=== PATIENT | male | born 1965 | race Caucasian/White ===

== ENCOUNTER → 2016-12-25 | Outpatient (CLI) | payer BC ==
[~2016-12-25] MED LIST: OXYC1TAB3 PO
[2016-12-25 14:51] LABS: BASO % 0.3 %; BASO ABS # 0.03 K/uL (0-0.2); COMPLETE YES; EOS % 1.7 %; HEMATOCRIT 46.8 % (42-52); IG% 0.5 %; LYMPH % 25.5 %; LYMPH ABS # 2.36 K/uL (1.2-3.4); MEAN CELL VOLUME 102.6 fL (80-100); MEAN CORPUSCULAR HEMOGLOBIN 36.2 pg (25-34); MEAN CORPUSCULAR HGB CONC 35.3 g/dl (32-36); MEAN PLATELET VOLUME 9.9 fL (7.4-10.4); MONO % 3.7 %; NEUT % 68.3 %; PLATELET COUNT 306 K/uL (130-400); RED BLOOD COUNT 4.56 M/uL (4.7-6.1); WHITE BLOOD COUNT 9.26 K/uL (4.8-10.8)
[2016-12-25 15:03] LABS: ALT/SGPT 35 U/L (12-78); AST/SGOT 20 U/L (15-37); BLOOD UREA NITROGEN 14 mg/dl (7-18); BUN/CREATININE RATIO 11.4 (10-20); CALCIUM 8.6 mg/dl (8.5-10.1); CARBON DIOXIDE 28 mmol/L (21-32); CHLORIDE 108 mmol/L (98-107); GLUCOSE 170 mg/dl (70-99); POTASSIUM 3.8 mmol/L (3.5-5.1); SODIUM 143 mmol/L (136-145)
[2016-12-25 15:05] LABS: ALB/GLOB RATIO 1.1 (0.9-2); ALKALINE PHOSPHATASE 112 U/L (45-117); C-REACTIVE PROTEIN 0.54 mg/dl (0-0.29)
[2016-12-30 16:33] LABS: IGA SERUM 264 mg/dL (81-463); TIS TRANS IGA 1 U/mL (<4)
== END | disposition home or self-care (01) ==
LOC: C.LAB1850 13:33
PROVIDERS: ATTEND Registered Nurse
DX: K62.5 Hemorrhage of anus and rectum (principal)

== ENCOUNTER → 2016-12-30 | Outpatient (CLI) | payer BC ==
--- NOTE | 2016-12-30 09:17 | DIAGNOSTIC IMAGING REPORT ---
ULTRASOUND RIGHT UPPER QUADRANT ABDOMEN CLINICAL HISTORY: Chronic diarrhea. Crampy abdominal pain. COMPARISON STUDY: Abdominal CT dated 12/22/2015. TECHNIQUE: Real-time, grayscale, and color flow sonography of the right upper quadrant of the abdomen was performed. Images are reviewed in the transverse and longitudinal planes. FINDINGS: Liver: The liver is normal in size and contour. The liver demonstrates heterogeneously increased echotexture consistent with hepatic steatosis. Fatty sparing is noted adjacent to gallbladder fossa. There is no intrahepatic biliary ductal dilatation. The main portal vein is patent. Gallbladder: The gallbladder is normal in appearance. No gallstones are identified. There is no gallbladder wall thickening or pericholecystic fluid. A sonographic Rodriguez's sign is reportedly absent. The common bile duct measures up to 0.4 cm in diameter. Pancreas: Visualized portions of the pancreatic head and body are normal in appearance. Right kidney: Survey images of the right kidney demonstrate normal size and echotexture. There is no hydronephrosis. Ascites: None. IMPRESSION: 1. No acute sonographic abnormality is identified in the right upper quadrant. No gallstones are seen. 2. Hepatic steatosis. Electronically signed by: Pro White M.D. 12/30/2016 9:16 AM Dictated Date/Time: 12/30/2016 9:15 AM
== END | disposition home or self-care (01) ==
LOC: C.ULTR 08:35
PROVIDERS: ATTEND Registered Nurse
DX: K52.9 Noninfective gastroenteritis and colitis, unspecified (principal); R10.9 Unspecified abdominal pain

== ENCOUNTER → 2016-12-30 | Day surgery (SDC) | payer BC ==
[2016-12-26 09:58] VITALS: Ht 188 cm; Wt 80.0 kg
[~2016-12-30] VITALS: Ht 188 cm; Wt 80.0 kg
[~2016-12-30] MED LIST changes: +ATROPINE SULFATE 0.1 MG/ML 5ML SYR IV PRN; +EpHEDrine SULFATE INJ 50 MG/ML AMP IV PRN; +LIDOCAINE HCL 2% 2 ML VIAL (20MG/ML) ONE; +MIDAZOLAM HCL 1 MG/ML 2ML VIAL ONE; -OXYC1TAB3 PO; +PROPOFOL IV EMULSION 10 MG/ML 20 ML VIAL IV ONE; +SODIUM CHLORIDE 0.9% 500ML 500 ML IV ONE
--- NOTE | 2016-12-30 14:31 | Endo History and Physical ---
History & Physical Date of Service: Dec 30, 2016. Chief Complaint: abdominal cramping,chronic diarrhea,rectal bleeding Referring Physician: Dr. Ben Kearns History of Present Illness 51 yo CM who presents for colonoscopy secondary to abdominal cramping, chronic diarrhea and rectal bleeding. Past Medical History Gastrointestinal Disorder Past Surgical History Hx Cardiac Surgery: No Hx Internal Defibrillator: No Hx Pacemaker: No Hx Abdominal Surgery: No Hx Post-Op Nausea and Vomiting: No Hx Cancer Surgery: No Hx Thoracic Surgery: No Hx Orthopedic: Yes (RT/LEFT KNEE ARTHROSCOPY) Hx Urinary Tract Surgery: No Family History Polyp Social History Smoking Status: Current Every Day Smoker Hx Substance Use: No Hx Alcohol Use: Yes (OCAS) Allergies Coded Allergies: NO KNOWN DRUG ALLERGIES (Verified Allergy, Mild, ., 12/26/16) Animal Dander (Verified Allergy, Unknown, sinus symptoms, 12/26/16) Duck Feathers (Verified Allergy, Unknown, sinus symptoms, 12/26/16) Horse Allergy (Verified Allergy, Unknown, ., 12/26/16) Molds and Smuts (Verified Allergy, Unknown, sinus sypmtom, 12/26/16) Uncoded Allergies: GRASS AND WEEDS (Allergy, Unknown, sinus symptoms, 08/05/14) Current Medications Reported Home Medications Medications Dose Route/Sig Max Daily Dose Days Date Category No Active Prescriptions or Reported Medications Rx Vital Signs Weight (Kilograms): 80 Height (Feet): 6 Height (Inches): 2 Physical Exam General Appearance: WD/WN, no apparent distress Respiratory/Chest: Auscultation: breath sounds normal Cardiovascular: Heart Auscultation: RRR Abdomen: Bowel Sounds: normal Inspection & Palpation: soft, non-distended, no tenderness, guarding & rebound Assessment and Plan Assessment: 51 yo CM who presents for colonoscopy secondary to abdominal cramping, chronic diarrhea and rectal bleeding. Plan: Proceed with colonoscopy.
--- NOTE | 2016-12-30 15:04 | GI REPORT ---
Procedure Date: 12/30/2016 2:25 PM Procedure: Colonoscopy Indications: Chronic diarrhea, Rectal bleeding Medicines: Monitored Anesthesia Care Complications: No immediate complications. Estimated Blood Loss: Estimated blood loss: none. Procedure: Pre-Anesthesia Assessment: - Prior to the procedure, a History and Physical was performed, and patient medications and allergies were reviewed. The patient's tolerance of previous anesthesia was also reviewed. The risks and benefits of the procedure and the sedation options and risks were discussed with the patient. All questions were answered, and informed consent was obtained. Prior Anticoagulants: The patient has taken no previous anticoagulant or antiplatelet agents. ASA Grade Assessment: II - A patient with mild systemic disease. After reviewing the risks and benefits, the patient was deemed in satisfactory condition to undergo the procedure. After I obtained informed consent, the scope was passed under direct vision. Throughout the procedure, the patient's blood pressure, pulse, and oxygen saturations were monitored continuously. The scope was introduced through the anus and advanced to the terminal ileum. The colonoscopy was performed without difficulty. The patient tolerated the procedure well. The quality of the bowel preparation was good. The terminal ileum, the appendiceal orifice and the rectum were photographed. Findings: Two sessile polyps were found in the sigmoid colon and in the transverse colon. The polyps were 3 to 4 mm in size. These polyps were removed with a cold snare. Resection and retrieval were complete. Several random biopsies were obtained with cold forceps for histology in the entire colon. Fluid aspiration for cytology was performed in the entire colon. Multiple small-mouthed diverticula were found in the sigmoid colon. A tattoo was seen in the sigmoid colon. A post-polypectomy scar was found at the tattoo site. Non-bleeding internal hemorrhoids were found during retroflexion. The hemorrhoids were small. Impression: - Two 3 to 4 mm polyps in the sigmoid colon and in the transverse colon, removed with a cold snare. Resected and retrieved. - Diverticulosis in the sigmoid colon. - A tattoo was seen in the sigmoid colon. A post-polypectomy scar was found at the tattoo site. - Non-bleeding internal hemorrhoids. - Several random biopsies were obtained in the entire colon. - Fluid aspiration was performed. Recommendation: - Resume previous diet. - Continue present medications. - Repeat colonoscopy for surveillance based on pathology results. - Return to primary care physician as previously scheduled. Joshua Geller DO 12/30/2016 3:03:56 PM This report has been signed electronically. Note Initiated On: 12/30/2016 2:25 PM I attest to the content of the Intraoperative Record and orders documented therein, exceptions below
--- NOTE | 2016-12-30 15:05 | Discharge Instructions ---
Endoscopy Patient Instructions Date / Procedure(s) Performed Dec 30, 2016. Colonoscopy Allergy Information Coded Allergies: NO KNOWN DRUG ALLERGIES (Verified Allergy, Mild, ., 12/26/16) Animal Dander (Verified Allergy, Unknown, sinus symptoms, 12/26/16) Duck Feathers (Verified Allergy, Unknown, sinus symptoms, 12/26/16) Horse Allergy (Verified Allergy, Unknown, ., 12/26/16) Molds and Smuts (Verified Allergy, Unknown, sinus sypmtom, 12/26/16) Uncoded Allergies: GRASS AND WEEDS (Allergy, Unknown, sinus symptoms, 08/05/14) Discharge Date / Findings Dec 30, 2016. Colon polyps Diverticulosis Internal hemorrhoids Random colon biopsies Stool studies collected Medication Instructions OK to resume all medications today as prescribed Reported Home Medications Medications Dose Route/Sig Max Daily Dose Days Date Category No Active Prescriptions or Reported Medications Rx Provider Instructions Activity Restrictions - No exercising or heavy lifting for 24 hours. - Do not drink alcohol the day of the procedure. - Do not drive a car or operate machinery until the day after the procedure. - Do not make any important decisions or sign important papers in 24 hours after the procedure. Following Day: - Return to full activity which may include returning to work/school. Diet Start your diet with liquids and light foods (jello, soup, juice, toast). Then eat your usual diet if not nauseated. Treatment For Common After Affects For mild abdominal pain, bloating, or excessive gas: - Rest - Eat lightly - Lie on right side Follow-Up Information Follow-up with Dr. Ben Kearns as scheduled Anesthesia Information What You Should Know You have had a procedure that required some medicine to reduce anxiety and discomfort. This treatment is called moderate sedation. After receiving the treatment, you may be sleepy, but you will be able to breathe on your own. The effects of the treatment may last for several hours. Follow these instructions along with Activity/Diet recommendations noted above: * Do NOT do anything where dizziness or clumsiness would be dangerous. * Rest quietly at home today, then you can be up and about tomorrow. * Have a responsible person stay with you the rest of today. * You may have had an I.V. today. If so, you may take the dressing off later today. Recommendations Call your doctor if: * Trouble breathing * Continuous vomiting for more than 24 hours * Temperature above 101 degrees * Severe abdominal pain or bloating * Pain not relieved by pain medicine ordered * There is increased drainage or redness from any incision * A large amount of rectal bleeding greater than 2-3 tablespoons. (If you had a polyp/s removed or have hemorrhoids, a small amount of blood - from the rectum is to be expected.) * You have any unanswered questions or concerns. IN THE EVENT OF A SERIOUS EMERGENCY, GO TO THE NEAREST EMERGENCY ROOM Your discharge instructions were prepared by provider Joshua Geller. Patient Instructions Signature Page Ayan Sloan Patient (or Guardian) Signature/Date: I have read and understand the instructions given to me by my caregivers. Caregiver/RN/Doctor Signature/Date: The above-named patient and/or guardian has received patient instructions on this date. + Original Patient Signature Page (only) stays with chart. Please make copy for patient.
[2016-12-30 15:23] VITALS: BP 110/57; PULSE 47; O2SAT 95
--- NOTE | 2016-12-30 15:25 | Anesthesiology Progress Note ---
Anesthesia Post Op Note Date & Time Dec 30, 2016 at 15:25 Vital Signs Pain Intensity: 3 Vital Signs Past 12 Hours Date Time Temp Pulse Resp B/P (MAP) Pulse Ox O2 Delivery O2 Flow Rate FiO2 12/30/16 15:21 66 18 105/71 (82) 99 Room Air 12/30/16 15:07 70 18 117/68 (84) 98 Room Air 12/30/16 14:21 36.6 75 20 133/80 (97) 98 Room Air Notes Mental Status: alert / awake / arousable, participated in evaluation Pt Amnestic to Procedure: Yes Nausea / Vomiting: adequately controlled Pain: adequately controlled Airway Patency, RR, SpO2: stable & adequate BP & HR: stable & adequate Hydration State: stable & adequate Anesthetic Complications: no major complications apparent
== END | disposition home or self-care (01) ==
LOC: C.GI 08:44
PROVIDERS: ATTEND Internal Medicine
DX: K52.9 Noninfective gastroenteritis and colitis, unspecified (principal); K62.5 Hemorrhage of anus and rectum; D12.5 Benign neoplasm of sigmoid colon; D12.3 Benign neoplasm of transverse colon; K57.30 Diverticulosis of large intestine without perforation or abscess without bleeding; K64.8 Other hemorrhoids; Z98.890 Other specified postprocedural states; Z83.71 Family history of colonic polyps; F17.200 Nicotine dependence, unspecified, uncomplicated

== ENCOUNTER 2023-08-28 10:25 | Observation (INO) ==
[2023-08-28 11:18] LABS: Hematocrit (blood only) 46.4 % (42.0-52.0); Hemoglobin 15.9 g/dl (14.0-18.0); Mean Corpuscular Hemoglobin 33.8 pg (25.0-34.0); Mean Corpuscular Hgb Conc 34.3 g/dL (32.0-36.0); Mean Corpuscular Volume 98.5 fL (80.0-100.0); Platelet Count 307 K/uL (130-400); RDW Coefficient of Variation 13.2 % (11.5-14.5); RDW Standard Deviation 47.9 fL (36.4-46.3); Red Blood Count 4.71 M/uL (4.70-6.10); White Blood Count 7.34 K/ul (4.8-10.8)
--- NOTE | 2023-08-28 11:28 | XRay Report ---
XR chest 1V portable HISTORY: weakness COMPARISON: Chest 01/30/2020. FINDINGS: The lungs are clear. Cardiac silhouette is normal in size. No pleural effusions. No pneumot horax. Calcified left hilar lymph nodes again noted. IMPRESSION: No acute process. ACT 112: Negative or not required by law. Electronically signed by: Adonis Frederick M.D. 08/28/2023 11:27 AM
[2023-08-28 11:33] LABS: Albumin Globulin Ratio 1.5 (0.9-2); Albumin Level 4.8 gm/dl (3.4-5.0); BUN Creatinine Ratio 16.5 (10-20); Bilirubin,Total 0.6 mg/dl (0.2-1.0); Calcium 9.5 mg/dl (8.6-10.3); Creatinine Clr Calc Pharmacy 97.1 ml/min; Est GFR (African American) 100.7 ml/min; Est GFR (Non-African American) 86.9 ml/min; Globulin 3.2 gm/dl (2.5-4.0); Magnesium 2.1 mg/dl (1.7-2.4); Potassium 4.3 mmol/L (3.5-5.1)
[2023-08-28 11:39] LABS: Troponin I High Sensitivity 4.6 pg/ml (0-20)
[2023-08-28 11:43] LABS: INR 0.9 (0.9-1.1); Partial Thromboplastin Time 29 Seconds (21-31); Prothrombin Time 10.2 Seconds (9.0-12.0)
[2023-08-28] MEDS: OPTIRAY 320 125ml IV ONE (12:01)
--- NOTE | 2023-08-28 12:18 | CT Scan Report ---
HEAD CTA HISTORY: L facial numbness; weakness TECHNIQUE: Multiaxial CT images of the head were performed both before and after the intravenous admi nistration of contrast to evaluate the major cerebral vessels. 3D/MIP images were also obtained. Sag ittal and coronal reformats were reviewed. A dose lowering technique was utilized adhering to the fátima Emery. COMPARISON: None. FINDINGS: There is no mass, hematoma, midline shift, or acute infarct. Visualized intracranial actuarial intern al carotid arteries, distal vertebral arteries, and basilar artery are widely patent. There is no sig nificant stenosis, occlusion, or aneurysm seen within the bilateral ACAs, MCAs, or cataract lens generator. The major du ral venous sinuses are patent. IMPRESSION: No significant stenosis, occlusion, or aneurysm within the north fork of [place]. ACT 112: Negative or not required by law. Electronically signed by: Adonis Frederick M.D. 08/28/2023 12:17 PM
[2023-08-28 12:27] LABS: Adenovirus PCR Not Detected (NotDetected); Bordetella parapertussis PCR Not Detected (NotDetected); Bordetella pertussis PCR Not Detected (NotDetected); Chlamydia pneumoniae PCR Not Detected (NotDetected); Coronavirus 229E PCR Not Detected (NotDetected); Coronavirus CoV-2 (COVID19)PCR Not Detected (NotDetected); Coronavirus HKU1 PCR Not Detected (NotDetected); Coronavirus NL63 PCR Not Detected (NotDetected); Coronavirus OC43PCR Not Detected (NotDetected); Human Metapneumovirus PCR Not Detected (NotDetected); Influenza A PCR Not Detected (NotDetected); Influenza B PCR Not Detected (NotDetected); Mycoplasma pneumoniae PCR Not Detected (NotDetected); Parainfluenza Virus 1 PCR Not Detected (NotDetected); Parainfluenza Virus 2 PCR Not Detected (NotDetected); Parainfluenza Virus 3 PCR Not Detected (NotDetected); Parainfluenza Virus 4 PCR Not Detected (NotDetected); Respiratory Syncytial VirusPCR Not Detected (NotDetected); Rhinovirus/Enterovirus PCR Not Detected (NotDetected)
--- NOTE | 2023-08-28 12:28 | CT Scan Report ---
CT ANGIOGRAPHY OF THE NECK WITH CONTRAST CLINICAL HISTORY: L facial numbness; weakness COMPARISON STUDY: Carotid ultrasound April 12, 2015. Technique: CT angiography of the carotid and vertebral arteries was obtained using [employer] and 3D rec onstruction on an independent workstation. NASCET criteria was utilized. Automated exposure control was utilized for the study. A dose lowering technique was utilized adhering to the principles of ALA RA. Findings: Mild emphysema is incidentally noted within the visualized lung apices. There is no cervica l lymphadenopathy. No cervical spine fractures are present. The bilateral common carotid, cervical in ternal carotid and vertebral arteries are patent. The left vertebral artery is dominant. There is min imal plaque within the bilateral common carotid and cervical internal carotid arteries without stenos is. No aneurysm or dissection within the neck. IMPRESSION: No stenosis, aneurysm or dissection within the bilateral common carotid, cervical interna l carotid or vertebral arteries. Mild atherosclerotic plaque. ACT 112: Negative or not required by law. Electronically signed by: Jah Magana M.D. 08/28/2023 12:26 PM
--- NOTE | 2023-08-28 12:36 | CT Scan Report ---
CT head/brain wo con CLINICAL HISTORY: 58 years-old Male with L facial numbness; weakness. Acute weakness with stroke lik e symptoms TECHNIQUE: Multiple axial CT images of the head were obtained without contrast. A dose lowering tech nique was utilized adhering to the principles of ALARA. COMPARISON: CTA head of same day FINDINGS: No acute intracranial hemorrhage, midline shift, intracranial mass, hydrocephalus, territorial ischem ia or abnormal extra-axial collection. The calvarium is intact. Mastoid air cells are clear. Partial ethmoidectomy changes. IMPRESSION: No acute intracranial abnormality. ACT 112: Negative or not required by law. The above report was generated using voice recognition software. It may contain grammatical, syntax o r spelling errors. Electronically signed by: Jimmy Christopher M.D. 08/28/2023 12:35 PM
--- NOTE | 2023-08-28 12:59 | Electrocardiogram Report ---
Test Reason : Blood Pressure : / mmHG Vent. Rate : 062 BPM Atrial Rate : 062 BPM P-R Int : 142 ms QRS Dur : 092 ms QT Int : 406 ms P-R-T Axes : 052 060 057 degrees QTc Int : 412 ms Normal sinus rhythm Normal ECG When compared with ECG of 30-JAN-2020 14:35, No significant change was found Confirmed by Miguelangel Black ([id number]) on 08/28/2023 12:59:04 PM Referred By: REFERRED SELF Confirmed By:Giorgio Black
--- NOTE | 2023-08-28 13:08 | Emergency Department Note ---
Impression & Plan TIA (transient ischemic attack) ED Provider Note HISTORY OF PRESENT ILLNESS: Patient is a 58-year-old male presenting with left facial numbness. Patient reports that while at work today he developed left-sided numbness, tongue numbness and a strange taste in his mouth. He states that symptoms started around 0930. He was talking to a colleague at work and they googled his symptoms and it showed concern for potential stroke. Denies any difficulty swallowing, slurred speech, changes in vision, numbness or tingling or weakness in extremities. He is not on any blood thinners. He started bringing himself to the emergency department and symptoms resolved. On arrival to the ER, he is symptom-free. He reports that he had an episode of blurred vision 2 days ago. He also states that 4 days ago he had a head which she has not had before. Denies recent head injuries or chiropractic manipulation of his neck. He denies any chest pain or shortness of breath. He does not take any medications daily. ROS: as above PHYSICAL EXAM: Constitutional: Patient appears in no acute distress. HENT: Head: Normocephalic and atraumatic. Eyes: EOMI, PERRL Mouth/Throat: Mucous membranes moist. Neck: Trachea midline. Neck supple. Cardiovascular: RRR, No murmurs, rubs or gallops. Intact distal pulses. Pulmonary/Chest: No respiratory distress. Breath sounds clear and equal bilaterally. No wheezes or rales. Abdominal: Abdomen soft, no tenderness, rebound or guarding. Musculoskeletal: No edema, tenderness or deformity noted. Skin: Warm and dry. No rash, erythema, pallor or cyanosis Psychiatric: Appropriate mood and affect for situation. Neurological: Alert and keenly responsive. Facies symmetric. Able to raise eyebrows, close eyes, smile, puff mouth, stick out tongue, move tongue left and right and raise palate symmetrically. Able to shrug shoulders. PERRLA. SILT to forehead below eye and at jawline. Can hear soft noise bilaterally. Good finger to nose. Strength 5/5 in bilateral upper and lower extremities. SILT throughout bilateral upper and lower extremities. MDM: - Vitals signs showed hypertension. - History obtained via patient. Patient presents with left facial numbness. Patient reports that he developed left-sided facial numbness and left tongue numbness at 0930 this morning while at work. He states that he googled his symptoms and it showed concern for stroke and he started transporting himself to the emergency department. However, and route to the ER his symptoms resolved. On arrival to the ER he is symptom-free. Denies any chest pain or shortness of breath. Denies ever having symptoms like this before. He denies any slurred speech, difficulty swallowing, numbness or tingling or weakness in extremities. He denies any anticoagulation use. - Chronic conditions affecting care: HLD - Differential diagnoses include, but are not limited to: CVA; intracranial hemorrhage; TIA; electrolyte abnormality; ACS; dysrhythmia - Order placed for continuous cardiac monitoring. At this time, monitor showed rate of 65 bpm with normal sinus rhythm, per my interpretation. - External medical records reviewed. - EKG interpreted by myself showed normal sinus rhythm. Rate 62 bpm. QT 406. No acute ischemic changes. - Laboratory workup interpreted by myself showed normal WBC; stable electrolytes; normal troponin - CT head wo contrast negative for acute intracranial pathology. - CTA head/neck negative for acute pathology. Noted to have some mild atherosclerotic plaque on his CTA neck. - CXR negative for pneumonia, per my interpretation. - Viral respiratory panel negative. - Discussion was had with cardiac care unit nurse about patient's case and need for admission - Hospitalist consulted for admission - Patient admitted to [facility] service for further evaluation and management. ASSESSMENT AND PLAN: Diagnosis: TIA Plan: admit Past Med/Surg History Medical History (Updated 08/28/23 @ 14:33 by Rola Catalan MD) [place] esophagus Tobacco use disorder HLD (hyperlipidemia) Surgical History (Updated 08/28/23 @ 14:30 by Fany Mckenzie PA-C) Hx of umbilical hernia repair Hx of colonoscopy with polypectomy Hx of sinus surgery Family History (Updated 08/28/23 @ 14:33 by Fany Mckenzie PA-C) Other Prostate cancer Social History Smoking Status: Current every day smoker Tobacco Type: Cigarettes Preferred Language: [place] Feels Safe at Home: Yes Allergies Allergies Allergy/AdvReac Type Severity Reaction Status Date / Time No Known Drug Allergies Allergy Mild . Verified 01/30/20 15:12 animal dander Allergy Unknown sinus Verified 08/28/23 13:01 symptoms feathers Allergy Unknown sinus Verified 08/28/23 13:01 symptoms Horse/Equine Containing Allergy Unknown . Verified 08/28/23 13:01 Products mold Allergy Unknown sinus Verified 08/28/23 13:01 sypmtom [employer] Allergy Unknown sinus Uncoded 08/28/23 13:01 symptoms Home Meds Home Medications Medication Instructions Recorded Confirmed aspirin 81 mg tablet,delayed 81 mg PO QAM 05/10/19 08/28/23 release (Halley Low Dose Aspirin) Results & Data (ED) Vital Signs Vital Signs - 24 hr 08/28/23 10:36 08/28/23 10:50 08/28/23 10:51 Temperature 36.1 C L Temperature Source Temporal Artery Scan Pulse Rate 72 Pulse Rate [Apical] 72 Respiratory Rate 16 15 Respiratory Effort / Characteristics Non-Labored Spontaneous Respiratory Depth Normal Respiratory Pattern Blood Pressure 155/75 H Blood Pressure [Left Arm] Blood Pressure [Right Arm] Blood Pressure Mean 101 Blood Pressure Mean [Left Arm] Blood Pressure Mean [Right Arm] Pulse Oximetry 99 99 98 Oxygen Delivery Method Room Air Room Air Room Air Sepsis Recent Fever Within 48 Hours No Sepsis New/Unexplained Change in Mental Status N/A Sepsis Action Taken by Nursing No Action Required 08/28/23 11:00 08/28/23 12:00 08/28/23 13:30 Temperature Temperature Source Pulse Rate 65 Pulse Rate [Apical] 66 69 Respiratory Rate 14 19 Respiratory Effort / Characteristics Non-Labored Spontaneous Respiratory Depth Normal Respiratory Pattern Regular Blood Pressure Blood Pressure [Left Arm] 163/89 H 127/70 Blood Pressure [Right Arm] 127/70 Blood Pressure Mean Blood Pressure Mean [Left Arm] 113 89 Blood Pressure Mean [Right Arm] 89 Pulse Oximetry 99 95 Oxygen Delivery Method Room Air Sepsis Recent Fever Within 48 Hours Sepsis New/Unexplained Change in Mental Status Sepsis Action Taken by Nursing 08/28/23 14:52 Temperature Temperature Source Pulse Rate 72 Pulse Rate [Apical] Respiratory Rate Respiratory Effort / Characteristics Respiratory Depth Respiratory Pattern Blood Pressure Blood Pressure [Left Arm] Blood Pressure [Right Arm] Blood Pressure Mean Blood Pressure Mean [Left Arm] Blood Pressure Mean [Right Arm] Pulse Oximetry Oxygen Delivery Method Sepsis Recent Fever Within 48 Hours Sepsis New/Unexplained Change in Mental Status Sepsis Action Taken by Nursing Laboratory Data 08/28/23 10:49 08/28/23 10:49 Lab Results 08/28/23 08/28/23 Range/Units 10:49 10:59 WBC 7.34 (4.8-10.8) K/ul RBC 4.71 (4.70-6.10) M/uL Hgb 15.9 (14.0-18.0) g/dl Hct 46.4 (42.0-52.0) % MCV 98.5 (80.0-100.0) fL MCH 33.8 (25.0-34.0) pg MCHC 34.3 (32.0-36.0) g/dL RDW Std Deviation 47.9 H (36.4-46.3) fL RDW Coeff of Sasha 13.2 (11.5-14.5) % Plt Count 307 (130-400) K/uL MPV 9.0 L (9.4-12.4) fL PT 10.2 (9.0-12.0) Seconds INR 0.9 (0.9-1.1) APTT 29 (21-31) Seconds PTT Ratio 1.0 Sodium 138 (136-145) mmol/L Potassium 4.3 (3.5-5.1) mmol/L Chloride 107 (98-107) mmol/L Carbon Dioxide 26 (21-32) mmol/L Anion Gap 5 (3-11) BUN 16 (6-23) mg/dl Creatinine 0.97 (0.6-1.4) mg/dl Est Cr Clr Drug Dosing 97.1 ml/min Est GFR ( Amer) 100.7 ml/min Est GFR (Non-Af Amer) 86.9 ml/min BUN/Creatinine Ratio 16.5 (10-20) Glucose 89 (70-99(Fasting)) mg/dl Calcium 9.5 (8.6-10.3) mg/dl Magnesium 2.1 (1.7-2.4) mg/dl Total Bilirubin 0.6 (0.2-1.0) mg/dl AST 19 (13-39) U/L ALT 20 (7-52) U/L Alkaline Phosphatase 93 (34-104) U/L Troponin I High Sens 4.6 (0-20) pg/ml Total Protein 8.0 (6.0-8.3) gm/dl Albumin 4.8 (3.4-5.0) gm/dl Globulin 3.2 (2.5-4.0) gm/dl Albumin/Globulin Ratio 1.5 (0.9-2) Adenovirus (PCR) Not Detected (NotDetected) B. pertussis DNA (PCR) Not Detected (NotDetected) B.parapertussis DNA PCR Not Detected (NotDetected) C. pneumoniae DNA (PCR) Not Detected (NotDetected) Coronavirus OC43 (PCR) Not Detected (NotDetected) Coronavirus HKU1 (PCR) Not Detected (NotDetected) Coronavirus 229E (PCR) Not Detected (NotDetected) SARS-CoV-2 (PCR) Not Detected (NotDetected) Coronavirus NL63 (PCR) Not Detected (NotDetected) Human Metapneumovir PCR Not Detected (NotDetected) Influenza Type A (PCR) Not Detected (NotDetected) Influenza Type B (PCR) Not Detected (NotDetected) M. pneumoniae (PCR) Not Detected (NotDetected) Parainfluenza 1 (PCR) Not Detected (NotDetected) Parainfluenza 2 (PCR) Not Detected (NotDetected) Parainfluenza 3 (PCR) Not Detected (NotDetected) Parainfluenza 4 (PCR) Not Detected (NotDetected) RSV (PCR) Not Detected (NotDetected) Entero/Rhino (PCR) Not Detected (NotDetected) Administered Medications Discontinued Medications Ioversol (Optiray 320 125ml) 117 ml IV ONCE ONE Stop: 08/28/23 12:02 Last Admin: 08/28/23 12:01 Dose: 117 ml Documented By: [facility] Imaging Data Radiologist's Impression: Chest X-Ray 08/28/23 10:51 XR chest 1V portable HISTORY: weakness COMPARISON: Chest 01/30/2020. FINDINGS: The lungs are clear. Cardiac silhouette is normal in size. No pleural effusions. No pneumothorax. Calcified left hilar lymph nodes again noted. IMPRESSION: No acute process. ACT 112: Negative or not required by law. Electronically signed by: Adoins Frederick M.D. 08/28/2023 11:[address] 08/28/23 10:51 CT head/brain wo con CLINICAL HISTORY: 58 years-old Male with L facial numbness; weakness. Acute weakness with stroke like symptoms TECHNIQUE: Multiple axial CT images of the head were obtained without contrast. A dose lowering technique was utilized adhering to the principles of ALARA. COMPARISON: CTA head of same day FINDINGS: No acute intracranial hemorrhage, midline shift, intracranial mass, hydrocephalus, territorial ischemia or abnormal extra-axial collection. The calvarium is intact. Mastoid air cells are clear. Partial ethmoidectomy changes. IMPRESSION: No acute intracranial abnormality. ACT 112: Negative or not required by law. The above report was generated using voice recognition software. It may contain grammatical, syntax or spelling errors. Electronically signed by: Jimmy Christopher M.D. 08/28/2023 12:35 PM Head CTA 08/28/23 10:51 HEAD CTA HISTORY: L facial numbness; weakness TECHNIQUE: Multiaxial CT images of the head were performed both before and after the intravenous administration of contrast to evaluate the major cerebral vessels. 3D/MIP images were also obtained. Sagittal and coronal reformats were reviewed. A dose lowering technique was utilized adhering to the principles of ALARA. COMPARISON: None. FINDINGS: There is no mass, hematoma, midline shift, or acute infarct. Visualized intracranial internal carotid arteries, distal vertebral arteries, and basilar artery are widely patent. There is no significant stenosis, occlusion, or aneurysm seen within the bilateral ACAs, MCAs, or corrosion control fitter. The major dural venous sinuses are patent. IMPRESSION: No significant stenosis, occlusion, or aneurysm within the [place]. ACT 112: Negative or not required by law. Electronically signed by: Adonis Frederick M.D. 08/28/2023 12:17 PM Neck CTA 08/28/23 10:51 CT ANGIOGRAPHY OF THE NECK WITH CONTRAST CLINICAL HISTORY: L facial numbness; weakness COMPARISON STUDY: Carotid ultrasound April 12, 2015. Technique: CT angiography of the carotid and vertebral arteries was obtained using [employer] and 3D reconstruction on an independent workstation. NASCET criteria was utilized. Automated exposure control was utilized for the study. A dose lowering technique was utilized adhering to the principles of ALARA. Findings: Mild emphysema is incidentally noted within the visualized lung apices. There is no cervical lymphadenopathy. No cervical spine fractures are present. The bilateral common carotid, cervical internal carotid and vertebral arteries are patent. The left vertebral artery is dominant. There is minimal plaque within the bilateral common carotid and cervical internal carotid arteries without stenosis. No aneurysm or dissection within the neck. IMPRESSION: No stenosis, aneurysm or dissection within the bilateral common carotid, cervical internal carotid or vertebral arteries. Mild atherosclerotic plaque. ACT 112: Negative or not required by law. Electronically signed by: Jah Magana M.D. 08/28/2023 12:26 PM Discharge Plan Visit Data Chief Complaint: Referred by Doctor Stated Complaint: FACIAL NUMBNESS, METAL TASTE IN MOUTH ED Provider: Rola Catalan Discharge Problem: TIA (transient ischemic attack) Forms Stand Alone Forms: [facility] [employer] Prescriptions Prescriptions: No Action aspirin [Halley Low Dose Aspirin] 81 mg Tablet,Delayed Release (Dr/Ec) 81 mg PO QAM Referrals Referrals: Rashad Garcia MD [Primary Care Provider] -
--- NOTE | 2023-08-28 14:54 | History & Physical Report ---
Date of Service August 28, 2023 Assessment & Plan (1) TIA (transient ischemic attack): (2) HLD (hyperlipidemia): (3) Tobacco use disorder: Plan This is a 58 year old M who has a hx of HLD and tobacco abuse who presents to ED 2/2 facial numbness, tongue numbness and metallic taste in mouth that started today. He was at work when all of a sudden he developed L facial numbness, tongue numbness and a metallic taste of his mouth prior to arrival. Sx resolved after several minutes prior to coming to ER. TIA - pt reporting fleeting neuro sx of L facial numbness, L side tongue numbness and metallic taste to mouth admit to tele stroke work up Head CT and CTAs unremarkable obtain Brain MRI Echocardiogram continue ASA, start atorvastatin 40mg HS a1c in a.m. fasting lipid panel done as outpatient 08/16/23 total chol 225, HDL 33, LDL 158 PT/OT per protocol obtain lyme screen, b12, folic acid HLD fasting lipid panel done as outpatient 08/16/23 total chol 225, HDL 33, LDL 158 initiate atorvastatin Tobacco abuse smoking cessation techniques discussed encourage cessation nicotine patch while inpt DVT ppx: SCDS, encourage ambulation FULL CODE PCP: Dr. Garcia Dispo: admit to tele for stroke work up, likely discharge tomorrow Pt was seen and examined in collaboration with Dr. Hanson, please see addendum A total of 60 minutes was spent coordinating, documenting, and providing care for this patient excluding time spent in the performance of separately billed services. This included personally viewing all current laboratories and imaging studies, medication reconciliation, outpatient chart review, and discussion with specialists. History of Present Illness Chief Complaint: Numbness to facial, tongue and metallic taste. Primary Care Provider: Rashad Garcia MD This is a 58 year old M who has a hx of HLD and tobacco abuse who presents to ED 2/2 facial numbness, tongue numbness and metallic taste in mouth that started today. He was at work when all of a sudden he developed L facial numbness, tongue numbness and a metallic taste of his mouth. The tongue numbness was only the left half of the tongue. This has happened before, specifically the metallic taste. He further reports off and on blurry vision that has been going on over the past year. He describes the blurry vision as, "looking through water." He denies any diplopia. He states it occurs in both eyes. 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 He does admit to having FAM. He is unsure though if it is related to him getting older as his co worker is in his 20s and he is SOB as well. He complains of a fluttering sensation in his chest off and on during the day. He denies any recent illness, f/c/s, chest pain, cough, hemoptysis, n/v/d, abd pain, change in bowel or urinary habits. He has a hx of tobacco use and has smoked since he was 19 years old. He smokes approx 1 ppd. Over the past 5-6 months he is down to 1 ppd lasting him 1.5 days. He feels it is a function of habit for him and association. He has been trying to change his habits. Allergies Allergy/AdvReac Type Severity Reaction Status Date / Time No Known Drug Allergies Allergy Mild . Verified 01/30/20 15:12 animal dander Allergy Unknown sinus Verified 08/28/23 13:01 symptoms feathers Allergy Unknown sinus Verified 08/28/23 13:01 symptoms Horse/Equine Containing Allergy Unknown . Verified 08/28/23 13:01 Products mold Allergy Unknown sinus Verified 08/28/23 13:01 sypmtom GRASS AND WEEDS Allergy Unknown sinus Uncoded 08/28/23 13:01 symptoms Home Medications Medication Instructions Recorded Confirmed Type aspirin 81 mg tablet,delayed 81 mg PO QAM 05/10/19 08/28/23 History release (Halley Low Dose Aspirin) Past Med/Surg History Medical History (Updated 08/28/23 @ 15:03 by Fany Mckenzie PA-C) Costa esophagus Tobacco use disorder HLD (hyperlipidemia) Surgical History Hx of umbilical hernia repair Hx of colonoscopy with polypectomy Hx of sinus surgery Family History Sister Aneurysm Other High cholesterol Prostate cancer Social History (Updated 08/28/23 @ 14:57 by Fany Mckenzie PA-C) Smoking Status: Current every day smoker Tobacco Type: Cigarettes Hx Alcohol Use: Yes Alcohol Intake Frequency: Monthly or Less Hx Substance Use: No Preferred Language: Faroese marital status: Current Living Situation: Spouse Feels Safe at Home: Yes Review of Systems Review of Systems: All systems reviewed & are unremarkable except as noted in HPI & below Physical Exam Physical Exam: please refer to Dr. Hanson addendum for physical exam findings. Results & Data Results & Data Vital Signs (Past 12 Hours) Vital Signs Temp Pulse Pulse Resp BP BP BP 08/28/23 13:30 69 19 127/70 127/70 08/28/23 12:00 66 14 163/89 H 08/28/23 11:00 65 08/28/23 10:51 08/28/23 10:50 72 15 08/28/23 10:36 36.1 C L 72 16 155/75 H Pulse Ox O2 Del Method 08/28/23 13:30 95 Room Air 08/28/23 12:00 99 08/28/23 11:00 08/28/23 10:51 98 Room Air 08/28/23 10:50 99 Room Air 08/28/23 10:36 99 Room Air Diagnostic Findings Chest X-Ray 08/28/23 10:51 XR chest 1V portable HISTORY: weakness COMPARISON: Chest 01/30/2020. FINDINGS: The lungs are clear. Cardiac silhouette is normal in size. No pleural effusions. No pneumothorax. Calcified left hilar lymph nodes again noted. IMPRESSION: No acute process. ACT 112: Negative or not required by law. Electronically signed by: Adonis Frederick M.D. 08/28/2023 11:[address] 08/28/23 10:51 CT head/brain wo con CLINICAL HISTORY: 58 years-old Male with L facial numbness; weakness. Acute weakness with stroke like symptoms TECHNIQUE: Multiple axial CT images of the head were obtained without contrast. A dose lowering technique was utilized adhering to the principles of ALARA. COMPARISON: CTA head of same day FINDINGS: No acute intracranial hemorrhage, midline shift, intracranial mass, hydrocephalus, territorial ischemia or abnormal extra-axial collection. The calvarium is intact. Mastoid air cells are clear. Partial ethmoidectomy changes. IMPRESSION: No acute intracranial abnormality. ACT 112: Negative or not required by law. The above report was generated using voice recognition software. It may contain grammatical, syntax or spelling errors. Electronically signed by: Jimmy Christopher M.D. 08/28/2023 12:35 PM Head CTA 08/28/23 10:51 HEAD CTA HISTORY: L facial numbness; weakness TECHNIQUE: Multiaxial CT images of the head were performed both before and after the intravenous administration of contrast to evaluate the major cerebral vessels. 3D/MIP images were also obtained. Sagittal and coronal reformats were reviewed. A dose lowering technique was utilized adhering to the principles of ALARA. COMPARISON: None. FINDINGS: There is no mass, hematoma, midline shift, or acute infarct. Visualized intracranial internal carotid arteries, distal vertebral arteries, and basilar artery are widely patent. There is no significant stenosis, occlusion, or aneurysm seen within the bilateral ACAs, MCAs, or water filterer helper. The major dural venous sinuses are patent. IMPRESSION: No significant stenosis, occlusion, or aneurysm within the [place] of [place]. ACT 112: Negative or not required by law. Electronically signed by: Adonis Frederick M.D. 08/28/2023 12:17 PM Neck CTA 08/28/23 10:51 CT ANGIOGRAPHY OF THE NECK WITH CONTRAST CLINICAL HISTORY: L facial numbness; weakness COMPARISON STUDY: Carotid ultrasound April 12, 2015. Technique: CT angiography of the carotid and vertebral arteries was obtained using [employer] and 3D reconstruction on an independent workstation. NASCET criteria was utilized. Automated exposure control was utilized for the study. A dose lowering technique was utilized adhering to the principles of ALARA. Findings: Mild emphysema is incidentally noted within the visualized lung apices. There is no cervical lymphadenopathy. No cervical spine fractures are present. The bilateral common carotid, cervical internal carotid and vertebral arteries are patent. The left vertebral artery is dominant. There is minimal plaque within the bilateral common carotid and cervical internal carotid arteries without stenosis. No aneurysm or dissection within the neck. IMPRESSION: No stenosis, aneurysm or dissection within the bilateral common carotid, cervical internal carotid or vertebral arteries. Mild atherosclerotic plaque. ACT 112: Negative or not required by law. Electronically signed by: Jah Magana M.D. 08/28/2023 12:26 PM Medications Administered Medication List Discontinued Medications Ioversol (Optiray 320 125ml) 117 ml IV ONCE ONE Stop: 08/28/23 12:02 Last Admin: 08/28/23 12:01 Dose: 117 ml Documented By: KSF ECG Additional Comments: I have independently reviewed and interpreted patient's admitting EKG which revealed: 62 NSR, no st or t wave changes COVID-19 Results Results COVID-19 Adm Lab Results: RBC 4.71 M/uL (4.70-6.10) 08/28/23 WBC 7.34 K/ul (4.8-10.8) 08/28/23 Hgb 15.9 g/dl (14.0-18.0) 08/28/23 Hct 46.4 % (42.0-52.0) 08/28/23 Plt Count 307 K/uL (130-400) 08/28/23 Na 138 mmol/L (136-145) 08/28/23 K 4.3 mmol/L (3.5-5.1) 08/28/23 Cl 107 mmol/L (98-107) 08/28/23 CO2 26 mmol/L (21-32) 08/28/23 Anion Gap 5 (3-11) 08/28/23 BUN 16 mg/dl (6-23) 08/28/23 Creatinine 0.97 mg/dl (0.6-1.4) 08/28/23 BUN/Creatinine Ratio 16.5 (10-20) 08/28/23 Glucose Level 89 mg/dl (70-99(Fasting)) 08/28/23 Ca 9.5 mg/dl (8.6-10.3) 08/28/23 Total Bilirubin 0.6 mg/dl (0.2-1.0) 08/28/23 AST/SGOT 19 U/L (13-39) 08/28/23 ALT/SGPT 20 U/L (7-52) 08/28/23 Alkaline Phosphatase 93 U/L (34-104) 08/28/23 Total Protein 8.0 gm/dl (6.0-8.3) 08/28/23 Albumin 4.8 gm/dl (3.4-5.0) 08/28/23 Globulin 3.2 gm/dl (2.5-4.0) 08/28/23 Albumin/Globulin Ratio 1.5 (0.9-2) 08/28/23 PTT 29 Seconds (21-31) 08/28/23 INR 0.9 (0.9-1.1) 08/28/23 Adenovirus (PCR) Not Detected (NotDetected) 08/28/23 B. parapertussis DNA (PCR) Not Detected (NotDetected) 08/08 08/30 B. pertussis DNA (PCR) Not Detected (NotDetected) 08/28/23 C. pneumoniae DNA (PCR) Not Detected (NotDetected) 4 Coronavirus Type OC43 (PCR) Not Detected (NotDetected) Coronavirus Type HKU1 (PCR) Not Detected (NotDetected) Coronavirus Type 229E (PCR) Not Detected (NotDetected) COVID-19 PCR Not Detected (NotDetected) 08/28/23 Coronavirus Type NL63 (PCR) Not Detected (NotDetected) Human Metapneumovirus (PCR) Not Detected (NotDetected) Influenza Virus Type A (PCR) Not Detected (NotDetected) Influenza Virus Type B (PCR) Not Detected (NotDetected) M. pneumoniae (PCR) Not Detected (NotDetected) 08/28/23 Parainfluenza Type 1 (PCR) Not Detected (NotDetected) 08/08 08/30 Parainfluenza Type 2 (PCR) Not Detected (NotDetected) 08/08 08/30 Parainfluenza Type 3 (PCR) Not Detected (NotDetected) 08/08 08/30 Parainfluenza Type 4 (PCR) Not Detected (NotDetected) 08/08 08/30 RSV (PCR) Not Detected (NotDetected) 08/28/23 Enterovirus/Rhinovirus (PCR) Not Detected (NotDetected) Chest X-Ray 08/28/23 Code Status & VTE Plan Code Status FULL CODE VTE Prophylaxis Plan VTE Prophylaxis will be ordered: Yes Supervising Physician Co-Signing Physician Notes I have seen and discussed the case with the collaborating JOSELUIS. I agree with the above H&P. I have reviewed and confirmed the patients medical history, the findings on physical examination, and the patients diagnosis and treatment plan with Jonah HUGGINS and agree with the information documented. In short, Mr. Sloan is a gentleman with history of ongoing tobacco use and HLD who is admitted for TIA like symptoms. Patient reports ongoing intermittent vision blurring, but notes today that his left face went numb with accompanying metallic taste in mouth and left tongue numbness. Patient notes that the symptoms resolved in 10-15 minutes, but presented for evaluation. Smoking 1ppd since 19, recent lipid panel elevated. Family history of aneurysms. Reports question of intermittent palpitations. GENERAL APPEARANCE: AxOx4, generally well-appearing M, no acute distress. HEENT: NC, AT. MMM. EOMI, clear conjunctiva, oropharynx clear. NECK: Supple without lymphadenopathy. No stiffness or restricted ROM. HEART: Normal rate and regular rhythm, normal S1/S1, no m/r/g LUNGS: CTAB, moving air well. No crackles or wheezes are heard. ABDOMEN: Soft, nontender, nondistended with good bowel sounds heard. EXTREMITIES: Without cyanosis, clubbing or edema. NEUROLOGICAL: Grossly nonfocal. Alert and oriented, moving all 4 extremities CN II-XII intact. strength 5/5 sensation intact all extremities . Observed to ambulate with normal gait. Skin: Warm and dry without any rash. : #Left facial numbness, c/f TIA -multiple risk factors, questionable history of ?palpitations, risk factors for a fib CTA negative, CT negative ICH -MRI ordered -ECHO ordered -Monitor on tele, consider zio patch on dc -continue asa 81mg -Start statin #tobacco use -Counselled extensively, agreeable to patch Rest of plan as above I have reviewed the advanced practitioner's documentation, and I agree with, and take responsibility for the plan of care I spent a total of 45 minutes coordinating, documenting, and providing care for this patient excluding time spent in the performance of separately billed services. All of the aforementioned completed outside of collaborating with the assigned advanced practitioner for a full treatment plan. Please see their addendum for further details.
[2023-08-28] MEDS ORDERED: ACETAMINOPHEN 325 MG TAB PO PRN (17:40)
[2023-08-28] MEDS ORDERED: PHARMACIST DISCHARGE MED REC CONSULT PRN (17:40)
[2023-08-28] MEDS ORDERED: ALUMINUM/MAGNESIUM SUSP 30 ML UDC PO PRN (17:40)
[2023-08-28] MEDS ORDERED: ONDANSETRON INJ 2 MG/ML 2 ML VIAL IV PRN (17:40)
[2023-08-28] MEDS ORDERED: POLYETHYLENE (MIRALAX) 17 GM PACK PO PRN (17:40)
[2023-08-28] MEDS ORDERED: MAGNESIUM HYDROXIDE SUSP 30 ML UDC PO PRN (17:40)
[2023-08-28] MEDS: NICOTINE 21 MG/24 HR TDSY TD SCH (18:57)
--- NOTE | 2023-08-28 19:29 | Magnetic Resonance Report ---
Brain MRI WITH AND WITHOUT CONTRAST HISTORY: Left-sided facial and tongue numbness. stroke w/u TECHNIQUE: Multiplanar multisequence MRI of the brain was performed both before and after the intrave nous administration of contrast. COMPARISON STUDY: Head CT 08/28/2023. FINDINGS: There are no areas of restricted diffusion to suggest acute infarction. The midline structu res are intact. The paranasal sinuses are clear. The mastoid air cells are clear. The ventricles and sulci are within normal limits for age. There is no mass, hematoma, midline shift. The major vascular flow-voids at the skull base are well maintained. Postcontrast sequences show no areas of abnormal e nhancement. IMPRESSION: No acute intracranial abnormality. ACT 112: Negative or not required by law. Electronically signed by: Adonis Frederick M.D. 08/28/2023 7:27 PM
[2023-08-28] MEDS: ATORVASTATIN 40 MG TAB PO SCH (20:38)
[2023-08-29 07:31] LABS: Basophils # (auto) 0.07 K/uL (0.00-0.20); Eosinophils # (auto) 0.31 K/uL (0.00-0.50); Eosinophils % (auto) 4.6 %; Hematocrit (blood only) 42.7 % (42.0-52.0); Hemoglobin 15.1 g/dl (14.0-18.0); Immature Granulocytes # (auto) 0.02 K/uL (0.01-0.20); Immature Granulocytes % (auto) 0.3 %; Lymphocytes # (auto) 2.23 K/uL (1.20-3.40); Lymphocytes % (auto) 33.2 %; Mean Corpuscular Hemoglobin 33.9 pg (25.0-34.0); Mean Corpuscular Hgb Conc 35.4 g/dL (32.0-36.0); Monocytes # (auto) 0.78 K/uL (0.11-0.59); Monocytes % (auto) 11.6 %; Neutrophils # (auto) 3.31 K/uL (1.40-6.50); Neutrophils % (auto) 49.3 %; Platelet Count 288 K/uL (130-400); RDW Coefficient of Variation 13.2 % (11.5-14.5); RDW Standard Deviation 46.8 fL (36.4-46.3); Red Blood Count 4.45 M/uL (4.70-6.10); White Blood Count 6.72 K/ul (4.8-10.8)
[2023-08-29 07:37] LABS: BUN Creatinine Ratio 14.3 (10-20); Calcium 8.9 mg/dl (8.6-10.3); Creatinine Clr Calc Pharmacy 82.7 ml/min; Est GFR (African American) 84.7 ml/min
--- OUTSIDE RECORDS SUMMARY | 2023-08-29 07:46 | External Medical Summary ---
Author Name Unknown Address Unknown Organization K01:[facility] - [address] [place] [address] Laboratory Report Ordering Provider Test Date Status LEILANI FOX 08/16/2023 08:10:20 Final Observation Date Value Abnormality Reference (Units ) Status PSA 08/16/2023 08:10:20 0.37 <3.10 (ng/ mL) Final Performing Location LAB[facility]ATORY [facility] [place] - [address] [place] [address]
--- OUTSIDE RECORDS SUMMARY | 2023-08-29 07:46 | External Medical Summary ---
Author Name Unknown Address Unknown Organization [id number]:[facility] [address] [place] [address] Laboratory Report Ordering Provider Test Date Status LEILANI FOX 08/16/2023 08:10:20 Final Observation Date Value Abnormality Reference (Units ) Status WBC, Total 08/16/2023 08:10:20 8.37 4.00-10.8 0 (K/uL) Final RBC 08/16/2023 08:10:20 4.58 4.50-5.25 (M/uL) Final Hemoglobin 08/16/2023 08:10:20 15.8 14.0-16.8 (g/dL) Final Anemia reflex testing trigge rs on a HGB < 12.0 for Females and HGB < 13.0 for Males in accordance with the WHO Anemia Guidelines
Anemia reflex testing triggers on a HGB < 12.0 for Females and HGB < 13.0 for Males in accordance with the WHO Anemia Guidelines HCT 08/16/2023 08:10:20 45.8 40.0-48.4 (%) Final MCV 08/16/2023 08:10:20 100.0 82.0-99.5 (fL) Final MCH 08/16/2023 08:10:20 34.5 27.0-34.0 (pg) Final MCHC 08/16/2023 08:10:20 34.5 32.0-36.0 (g/dL) Final RDW 08/16/2023 08:10:20 13.1 11.5-15.5 (%) Final Platelets 08/16/2023 08:10:20 285 140-400 (K /uL) Final MPV 08/16/2023 08:10:20 8.9 6.6-11.1 ( fL) Final Performing Location [facility]ORY [facility] [address] [place] [address]
--- OUTSIDE RECORDS SUMMARY | 2023-08-29 07:46 | External Medical Summary ---
Author Name Unknown Address Unknown Organization K01:[facility] - [address] [facility]. [place] [address] Laboratory Report Ordering Provider Test Date Status AVNI FOXCHAITANYA 08/16/2023 08:10:20 Final Observation Date Value Abnormality Reference (Units ) Status Triglyceride 08/16/2023 08:10:20 172 <=174 ( mg/dL) Final Triglyceride Reference Range s (mg/dL):
<150 Acceptable
150-174 Borderline high
175-499 High
>=500 Very high Cholesterol 08/16/2023 08:10:20 225 Above high normal <200 (mg/dL) Final Total Cholesterol Reference Ranges (mg/dL):
<200 Desirable
200-239 Borderline high
>=240 High HDL 08/16/2023 08:10:20 33 Below low normal >39 (mg/dL) Final HDL Cholesterol Reference Ra nges (mg/dL):
>=60 High (Desirable)
<50 Low (Undesirable) For Females
<40 Low (Undesirable) For Males NON-HDL CHOLESTEROL 08/16/2023 08:10:20 192 Above high normal <=159 (mg/dL) Final Non-HDL Cholesterol Referenc e Range (mg/dL):
<100 Target level for high risk ASCVD patient
<130 Optimal for general population
130-159 Near optimal for general population
160-189 Borderline High
190-219 High
>=220 Very High LDL, (calculated) 08/16/2023 08:10:20 158 Above high n ormal <=129 (mg/dL) Final LDL Cholesterol Reference Ra nges (mg/dL):
<70 Target level for high risk ASCVD patient
<100 Optimal for general population
100-129 Near optimal for general population
130-159 Borderline high
160-189 High
>=190 Very high Performing Location LABORATORY [facility] [place] - [address] [facility] [address]
--- OUTSIDE RECORDS SUMMARY | 2023-08-29 07:46 | External Medical Summary ---
Author Name Unknown Address Unknown Organization K01:[facility]ATORY [facility] [place] - [address] [place] [address] Laboratory Report Ordering Provider Test Date Status LEILANI FOX 08/16/2023 08:10:20 Final Observation Date Value Abnormality Reference (Units ) Status TSH 08/16/2023 08:10:20 1.06 0.27-4.20 (uIU/mL) Final Performing Location [facility] - [address] [place] [address]
--- OUTSIDE RECORDS SUMMARY | 2023-08-29 07:46 | External Medical Summary ---
Author Name Unknown Address Unknown Organization K0G:[facility] [place] [address] - [address] [place] [address] Laboratory Report Ordering Provider Test Date Status LEILANI FOX 08/16/2023 08:10:20 Final Observation Date Value Abnormality Reference (Units ) Status SYNC LEUKOCYTES IN BLOOD BY AUTOMATED COUNT 08/16/2023 08:10:20 8.37 4.00-10.80 (K/uL) Final Segs 08/16/2023 08:10:20 62.6 40.0-75.0 (%) Final Lymphs % 08/16/2023 08:10:20 23.8 18.0-42.0 (%) Final Monos 08/16/2023 08:10:20 10.6 1.0-11.0 (%) Final Eosinophils 08/16/2023 08:10:20 2.4 0.0-6.0 (%) Final Basos 08/16/2023 08:10:20 0.6 0.0-2.0 (%) Final Absolute Segs 08/16/2023 08:10:20 5.24 1.80-7.70 (K/uL) Final Lymphs, absolute 08/16/2023 08:10:20 1.99 1.00-4.80 (K/ul) Final Monos, Abs 08/16/2023 08:10:20 0.89 0.00-1.10 (K/uL) Final Eos, Abs 08/16/2023 08:10:20 0.20 0.00-0.70 (K/uL) Final Basos, Abs 08/16/2023 08:10:20 0.05 0.00-0.20 (K/uL) Final [facility] Location [facility] [address] - [address] [place] [address]
--- OUTSIDE RECORDS SUMMARY | 2023-08-29 07:46 | External Medical Summary ---
Author Name Unknown Address Unknown Organization K01:LABORATORY [facility] [place] - [address] [place] [address] Laboratory Report Ordering Provider Test Date Status LEILANI FOX 08/16/2023 08:10:20 Final Observation Date Value Abnormality Reference (Units ) Status Testosterone [Mass/volume] in Serum or Plasma 08/16/2023 08:10:20 362.4 193.0-740.0 (ng/dL) Final Performing Location LABORATORY [facility] [place] - [address] [place] [address]
--- OUTSIDE RECORDS SUMMARY | 2023-08-29 07:46 | External Medical Summary ---
Author Name Unknown Address Unknown Organization K0G:[facility] [address] - [address] [place] [address] Laboratory Report Ordering Provider Test Date Status LEILANI FOX 08/16/2023 08:10:20 Final Observation Date Value Abnormality Reference (Units ) Status BUN 08/16/2023 08:10:20 18 6-20 (mg/dL) Final Creatinine 08/16/2023 08:10:20 1.1 0.6-1.2 (mg/dL) Final Glomerular filtration rate/1.73 sq M.predicted [Volume Rate/Area] in Serum, Plasma or Blood by Creatinine-based formula (CKD-EPI) 08/16/2023 08:10:20 77 >=60 (mL/min) Final eGFR is calculated based on the CKD-EPI 2020 equation SODIUM 08/16/2023 08:10:20 139 135-146 (m mol/L) Final Potassium 08/16/2023 08:10:20 4.6 3.5-5.1 (m mol/L) Final Cl 08/16/2023 08:10:20 105 98-107 (mm ol/L) Final CO2 08/16/2023 08:10:20 22 22-32 (mmo l/L) Final Anion gap 08/16/2023 08:10:20 12 7-15 (mmol /L) Final Glucose 08/16/2023 08:10:20 100 70-120 (mg /dL) Final Albumin 08/16/2023 08:10:20 4.5 3.8-5.0 (g /dL) Final AST (Aspartate aminotransferase) 08/16/2023 08:10:20 22 10-50 (U/L) Final Alk Phos 08/16/2023 08:10:20 90 35-130 (U/ L) Final Bilirubin, Total 08/16/2023 08:10:20 0.5 <=1 .2 (mg/dL) Final Calcium 08/16/2023 08:10:20 9.5 8.4-10.2 ( mg/dL) Final Protein 08/16/2023 08:10:20 7.0 6.0-8.3 (g /dL) Final ALT (Alanine aminotransferase) 08/16/2023 08:10:20 23 10-50 (U/L) Final Performing Location LAB[facility]ATORY [place] [address] - [address] [facility] [address]
--- OUTSIDE RECORDS SUMMARY | 2023-08-29 07:46 | External Medical Summary | Summary of Care ---
Author Name Unknown Organization [facility] Address [address] [place] [id number] Phone [phone] Care Team Providers Care Internal [employer]ion [employer] Subassembler Name Role Phone Rashad Garcia MD Primary Care Provider [phone] Reason for Visit * Auth/Cert Specialty Diagnoses / Procedures Referred By Kilo henriquez Referred To Contact Diagnoses History of colonic polyps Change in bowel habits History of colonic polyps [Z86.010] Change in bowel habits [R19.4] Procedures COLONOSCOPY, DIAGNOSTIC (RECTUM) COLONOSCOPY FLEXIBLE PROXIMAL DIAGNOSTIC Referral ID Status Reason Start Date Expiration Date Visits Re quested Visits Authorized [id number] Encounter Details Date Type Department Care Team (Latest Contact Info) Description 08/26/2023 10:02 AM EST - 08/26/2023 12:15 PM EST Hospital Encounter [facility]O [facility], Endoscopy Room [facility] [address] [place] [phone] Raj Colon MD [address] [place] [id number] Colonoscopy Discharge Disposition: Home - Self Care Allergies Active Allergy Reactions Criticality Noted Date Comments Cat Dander 05/03/2020 Nasal congestion Dog Dander 05/03/2020 Nasal congestion Dust 05/03/2020 Nasal congestion Birds 05/03/2020 Duck, chicken, geese--nasal congestion Horse-Derived Products 05/03/2020 Allergic to dander--nasal congestion Mixed Grasses 05/03/2020 Nasal congestion Molds & Smuts 05/03/2020 Nasal congestion Nickel 05/03/2020 rash documented as of this encounter (statuses as of 08/27/2023) Medications No known medicationsdocumented as of this encounter (statuses as of 08/27/2023) Active Problems Problem Noted Date Diagnosed Date Dyslipidemia 03/06/2021 Pulmonary nodules 03/06/2021 Tobacco use disorder 08/16/1998 documented as of this encounter (statuses as of 08/27/2023) Immunizations Name Administration Dates Next Due Pneumococcal Polysaccharide PPV23 (Pneumovax) Seasonal Influenza Virus Vac cine, Unspecified Formulation 04/27/2015,04/25/2010 Seasonal Influenza, Split, IIV3, With Preserve, Inj 04/25/2010 TDAP (age 10 and older)(Boostrix) 02/24/2016 TDAP (age 11 and older)(Adacel) 04/15/2005 documented as of this encounter Social History Tobacco Use Types Packs/Day Years Used Date Smoking Tobacco: Every Day Cigarettes 1 39.1 Started: 1984 Smokeless Tobacco: Never Alcohol Use Standard Drinks/Week Comments Yes 0 (1 standard drink = 0.6 oz pur e alcohol) beer PHQ-2 Answer Date Recorded PHQ-2 Score 0 04/03/2020 Hunger Vital Sign Answer Date Recorded Worried About Running Out of Food in the Last Ye ar Never true 03/30/2019 Ran Out of Food in the Last Year Never true 03/30/2019 Sex and Gender Information Value Date Recorded Sex Assigned at Not on file Gender Identity Not on file Sexual Orientation Not on file Job Start Date Occupation Industry Not on file Not on file Not on file documented as of this encounter Last Filed Vital Signs Vital Sign Reading Time Taken Comments Blood Pressure 106/54 08/26/2023 11:36 AM EST Pulse 70 08/26/2023 11:36 AM EST Temperature 36.2 C (97.1 F) 08/26/2023 11:[address] Respiratory Rate 15 08/26/2023 11:36 AM EST Oxygen Saturation 99% 08/26/2023 11:36 AM EST Inhaled Oxygen Concentration - - Weight 81.6 kg (180 lb) 08/26/2023 10:17 AM EST Height 188 cm (6' 2") 08/26/2023 10:17 AM EST Body Mass Index 23.11 08/26/2023 10:17 AM EST documented in this encounter H&P Notes * Raj Colon MD - 08/26/2023 11:01 AM EST Endoscopy Pre-Procedure Assessment Name: Ayan Sloan Date: 08/26/2023 Time: 11:01 AM Procedure: Colonoscopy; with Indication(s) of colon polyp surveillance Endoscopy Pre-Procedure Assessment: Prior to the procedure, the patient was identified. The patient's history, medications and allergies were reviewed as per the Anesthesia Assessment. The patient is competent. The risks and benefits of the proposed procedure and the planned sedation were discussed with the patient. All questions were answered and informed consent for the procedure was obtained. This patient has undergone a preprocedural evaluation. A determination has been made to proceed with the planned procedure under [facility] procedural guidelines and the [facility] Non-Emergent, Elective Medical Services and Treatment Recommendations (published on 10-12-19). The community and hospital prevalence of COVID-19 has been discussed as well as this patient's specific risks associated with SARS-CoV-19 infection. Based upon the clinical acuity and patient-specific care considerations, this procedure is deemed a Tier II - Intermediate acuity treatment or service with either progression or the threat of progressive disease related to the delay in treatment. Not providing the service has the potential for increasing morbidity or mortality. BP 130/61 | Pulse 78 | Temp 36.1 C (97 F) (Tympanic) | Resp 18 | Ht 1.88 m (6' 2") | Wt 81.6 kg(180 lb) | SpO2 100% | BMI 23.11 kg/m | BSA 2.06 m Prior to Admission medications Not on File Review of patient's allergies indicates: Allergen Reactions Cats [Cat Dander] Nasal congestion Dogs [Dog Dander] Nasal congestion Dust Nasal congestion Feather [Birds] Duck, chicken, geese--nasal congestion Horse-Derived Products Allergic to dander--nasal congestion Mixed Grasses Nasal congestion Molds & Smuts Nasal congestion Nickel rash Physical Exam: Mental Status Examination: alert and oriented. General: nad, calm Airway Examination: normal oropharyngeal airway and neck mobility. CV: no JVD Respiratory Examination: symmetrical excursion Abd:soft/ntd ASA Grade: III - A patient with severe systemic disease. After reviewing the risks and benefits, the patient was deemed in satisfactory condition to undergothe procedure. The anesthesia plan was to use general anesthesia. Raj Colon MD 08/26/2023 documented in this encounter Procedure Notes * Rashad Garcia MD - 08/26/2023 11:01 AM ESTAssociated Order(s): COLONOSCOPY [facility] Patient Name: Ayan Sloan Procedure Date: 08/26/2023 11:01 AM Date of : 1965 Admit Type: Outpatient Note Status: Finalized Date of : 1965 Admit Type: Outpatient Age: 58 Room: Endo 2 Gender: Male Note Status: Finalized Procedure: Colonoscopy Providers: Raj Colon MD (Doctor) Referring MD: Rashad Garcia MD (Referring MD) Complications: No immediate complications. Estimated blood loss: None. Procedure: Pre-Anesthesia Assessment: - - Prior to the procedure, a History and Physical was performed, patient medications, allergies and sensitivities were reviewed. The patient's tolerance of previous anesthesia was reviewed. See [facility] for further details. - The risks, benefits, and alternatives of the procedure including the sedation options and risks were discussed with the patient. All questions were answered and informed consent was obtained. - Patient identification and proposed procedure were verified prior to the procedure by the physician and the nurse. The procedure was verified in the procedure room. - See [facility] for documentation of the pre-procedure assessment including ASA status. - After I obtained informed consent, the scope was carefully and meticulously passed under direct vision only when the lumen was definitively identified. CO2 insufflation was utilized throughout the entire procedure exclusively. After I obtained informed consent, the scope was passed under direct vision. All instruments were visually inspected immediately before and after removal from the patient to ensure they are fully intact. Throughout the procedure, the patient's blood pressure, pulse, and oxygen saturations were monitored continuously. The colonoscopy was performed without difficulty. The patient tolerated the procedure well. The quality of the bowel preparation was good. The PCF-H190L Colonoscope ([id number]) was introduced through the anus and advanced to the cecum, identified by appendiceal orifice and ileocecal valve. Findings & Specimens: The terminal ileum appeared normal. A 4 mm polyp was found in the ascending colon. The polyp was sessile. The polyp was removed with a cold snare. Resection and retrieval were complete. The pathology specimen was placed into Bottle Number 1. A 3 mm polyp was found in the sigmoid colon. The polyp was sessile. The polyp was removed with a cold snare. Resection and retrieval were complete. The pathology specimen was placed into Bottle Number 2. Multiple small-mouthed diverticula were found in the sigmoid colon. Internal hemorrhoids were found during retroflexion. The exam was otherwise without abnormality on direct and retroflexion views. Impression: - The examined portion of the ileum was normal. - One 4 mm polyp in the ascending colon, removed with a cold snare. Resected and retrieved. - One 3 mm polyp in the sigmoid colon, removed with a cold snare. Resected and retrieved. - Diverticulosis in the sigmoid colon. - Internal hemorrhoids. - The examination was otherwise normal on direct and retroflexion views. Recommendation: - Discharge patient to home (with escort). - Repeat colonoscopy in 5 years for surveillance. - Return to referring physician as previously scheduled. - Patient has a contact number available for emergencies. The signs and symptoms of potential delayed complications were discussed with the patient. Return to normal activities tomorrow. Written discharge instructions were provided to the patient. - Miralax 1 capful (17 grams) in 8 ounces of water PO daily. Raj Colon MD 08/26/2023 11:37:20 AM This report has been signed electronically. documented in this encounter Nursing Notes * Ander Tavares RN - 08/26/2023 11:48 AM EST Patient transferred to post endo s/p colonoscopy. Patient awake Respirations are even and unlabored on room air. NSR in the 60s on the monitor. Abdomen soft and non distended. Vital signs stable. * Mago Espinal RN - 08/26/2023 11:33 AM EST See anesthesia record for medication administered during procedure. Mago Espinal RN Specimen(s) and location(s) verified with physician post procedure 11:33 AM Mago Espinal RN Pre cleaning of scope at the bedside started by laboratory technologist. Pt tolerated his colonoscopy with polypectomies well. No abdominal pressure used during the procedure. Escorted to the PACU lying quietly on his left side. * Whit Albert RN - 08/26/2023 10:29 AM EST Patient prepped and ready for procedure. Call krueger in reach. * Whit Albert RN - 08/26/2023 10:04 AM EST The following pt discharge instructions reviewed with pt prior to prodedure: No driving today. No alcohol today. No signing of legal documents. Rest as much as possible today and can return to normal activities tomorrow. No operating any heavy equipment today. Diet as tolerated. Pt verbalized understanding. documented in this encounter Plan of Treatment Upcoming Encounters Date Type Department Care Team (Late st Contact Info) Description 08/28/2023 5:00 PM EST Imaging Radiology [address] [place] [id number] 10/07/2023 8:00 AM EDT Office Visit Sleep Disorders Ctr [facility] [address] [place] [phone] Fatemeh Varela DO [address] [place] [address] 11/11/2023 5:00 PM EDT Office Visit Family Practice [facility] [address] [place] [address] Areli Simon CRNP [address] [place] [address] 11/27/2023 2:00 PM EDT Office Visit Audiology [facility] [address] [place] [address] Patricia Schumacher Au.D. [address] [place] [phone] Pending Results Name Type Priority Associated Diagnoses Date /Time SURGICAL PATHOLOGY Pathology Routine History of colonic polyps Change in bowel habits 08/26/2023 11:35 AM EST Scheduled Orders Name Type Priority Associated Diagnoses Orde r Schedule SURGICAL PATHOLOGY Pathology Routine History of colonic polyps Change in bowel habits Release Upon Ordering for 1 Occurrences starting 08/26/2023, 1 completed Health Maintenance Due Date Last Done Comments HIV Screening 1982 Hepatitis C Screening 1985 Hepatitis B (1 of 3 - 19+ 3-dose series) 1986 Pneumococcal Vaccine: Pediatrics (0 to 5 Years) and At-Risk Patients (6 to 64 Years) (2 of 2 - PCV) 10/04/2010 10/04/2009 Zoster Vaccines (1 of 2) 2017 Depression Screening 04/03/2021 04/03/2020 COVID-19 Vaccine (1 - 2022-24 season) 2023 Influenza Vaccine (FLU shot) (#1) 2023 04/27/2015, 04/25/2010, 04/25/2010 DTaP,Tdap,and Td Vaccines (3 - Td or Tdap) 02/23/2026 02/24/2016, 04/15/2005 Lipid Panel 08/16/2028 08/16/2023, 03/08, 04/07/2020 COLONOSCOPY-EVERY 5 YRS AGES 18-100 08/26/2028 08/26/2023, 05/15/2020, 05/15/2020, Additional history exists LUNG CANCER SCREENING - USE SMARTSET 72513 Completed 08/09/2020, 01/30/2020 COLONOSCOPY-ANNUAL AGES 18-100 Discontinued 08/26/2023, 05/15/2020, 05/15/2020, Additional history exists GARDASIL-HPV IMMUNIZATION SERIES Aged Out No longer eligible based on patient's age to complete this topic MENINGOCOCCAL (MENACTRA/MENVEO) Aged Out No longer eligible based on patient's age to complete this topic documented as of this encounter Medical Devices Not on filedocumented as of this encounter Procedures Procedure Name Priority Date/Time Associated Diagnosis Comments COLONOSCOPY 08/26/2023 11:01 AM EST documented in this encounter Results * COLONOSCOPY (08/26/2023 11:01 AM EST) 08/26/2023 11:0 1 AM EST Narrative Procedure Note Rashad Garcia MD - 08/26/2023 11:01 AM EST [facility] Patient Name: Ayan Sloan Procedure Date: 08/26/2023 11:01 AM Date of : 1965 Admit Type: Outpatient Note Status:Finalized Date of : 1965 Admit Type: Outpatient Age: 58 Room: Endo 2 Gender: Male Note Status: Finalized Procedure: Colonoscopy Providers: Raj Colon MD (Doctor) Referring MD: Rashad Garcia MD (Referring MD) Complications: No immediate complications. Estimated blood loss:None. Procedure: Pre-Anesthesia Assessment: - - Prior to the procedure, a History and Physicalwas performed, patient medications, allergies and sensitivities were reviewed. Thepatient's tolerance of previous anesthesia was reviewed. See [facility] for furtherdetails. - The risks, benefits, and alternatives of theprocedure including the sedation options and risks were discussed with the patient.All questions were answered and informed consent was obtained. - Patient identification and proposed procedurewere verified prior to the procedure by the physician and the nurse. The procedure wasverified in the procedure room. - See [facility] for documentation of the pre-procedureassessment including ASA status. - After I obtained informed consent, the scope wascarefully and meticulously passed under direct vision only when the lumen wasdefinitively identified. CO2 insufflation was utilized throughout the entire procedureexclusively. After I obtained informed consent, the scope waspassed under direct vision. All instruments were visually inspected immediatelybefore and after removal from the patient to ensure they are fully intact. Throughout the procedure, the patient's bloodpressure, pulse, and oxygen saturations were monitored continuously. The colonoscopy wasperformed without difficulty. The patient tolerated the procedure well. The qualityof the bowel preparation was good. The PCF-H190L Colonoscope ([id number]) was introducedthrough the anus and advanced to the cecum, identified by appendiceal orifice andileocecal valve. Findings & Specimens: The terminal ileum appeared normal. A 4 mm polyp was found in the ascending colon. The polyp was sessile.The polyp was removed with a cold snare. Resection and retrieval were complete. The pathology specimenwas placed into Bottle Number 1. A 3 mm polyp was found in the sigmoid colon. The polyp was sessile.The polyp was removed with a cold snare. Resection and retrieval were complete. The pathology specimenwas placed into Bottle Number 2. Multiple small-mouthed diverticula were found in the sigmoid colon. Internal hemorrhoids were found during retroflexion. The exam was otherwise without abnormality on direct and retroflexionviews. Impression: - The examined portion of the ileum was normal. - One 4 mm polyp in the ascending colon, removedwith a cold snare. Resected and retrieved. - One 3 mm polyp in the sigmoid colon, removed witha cold snare. Resected and retrieved. - Diverticulosis in the sigmoid colon. - Internal hemorrhoids. - The examination was otherwise normal on directand retroflexion views. Recommendation: - Discharge patient to home (with escort). - Repeat colonoscopy in 5 years for surveillance. - Return to referring physician as previouslyscheduled. - [facility] The signs and symptoms of potential delayed complications were discussed withthe patient. Return to normal activities tomorrow. Written discharge instructionswere provided to the patient. - Miralax 1 capful (17 grams) in 8 ounces of waterPO daily. Raj Colon MD 08/26/2023 11:37:20 AM This report has been signed electronically. Rashad Garcia MD [facility] documented in this encounter Visit Diagnoses Diagnosis History of colonic polyps Personal history of colonic polyps Change in bowel habits Other symptoms involving digestive system documented in this encounter Administered Medications Inactive Administered Medications - up to 3 most recent administrations Medication Order MAR Action Action Date Dose Rate Site isolyte-S pH 7.4 infusion Intravenous, at 100 mL/hr, Plasma-LYTE 148, isolyte-S, and isolyte-S pH 7.4 are considered equivalent - including for MAR barcode scanning., CONTINUOUS, Starting on e 08/26/23 at 1045, Until e 08/26/23 at 1616, Pre-Op Restarted 08/26/2023 11:37 AM EST Continue from Pre-Op 08/26/2023 11:07 AM EST 10 0 mL/hr New Bag 08/26/2023 10:28 AM EST 100 mL/hr documented in this encounter Active and Recently Administered Medications Times are shown in EST. Continuous Medication Order 08/24/2023 08/25/2023 08/26/2023 isolyte-S pH 7.4 infusion Intravenous, at 100 mL/hr, Plasma-LYTE 148, isolyte-S, and isolyte-S pH 7.4 are considered equivalent - including for MAR barcode scanning., CONTINUOUS, Starting on Fri08/26/23 at 1045, Until Fri08/26/23 at 1616, Pre-Op 1028 (New Bag - Prov ider: Whit Albert RN)1107 (Continue from Pre-Op - Provider: Hanh Lazo CRNA)1136 (Paused - Provider: Hanh Lazo CRNA - Comment: Switch to gravity)1137 (Restarted - Provider: Hanh Lazo CRNA) documented in this encounter Advance Directives Latest Code Status on File Code Status Date Activated Date Inactivated Comments Full Code 03/30/2021 9:55 AM 03/30/2021 5:43 PM This order reflects the patients wishes and were consensually agreed upon. Care Teams [employer]er Relationship Specialty Start Date End Date Rashad Garcia MD [address] [place] [address] PCP - General Family Medicine 03/30/21 documented as of this encounter
--- OUTSIDE RECORDS SUMMARY | 2023-08-29 07:46 | External Medical Summary | Summary of Care ---
Author Name Unknown Organization [facility] [address] [facility] [address] Phone [phone] Care Team Providers Care Bridge Inspector Name Role Phone Rashad Garcia MD Primary Care Provider [phone] Reason for Visit * Reason Comments Outpatient Testing Encounter Details Date Type Department Care Team (Late st Contact Info) Description 08/16/2023 8:30 AM EST Laboratory Laboratory, [facility] [address] [facility] [phone] [facility] [address] [address] Malaise and fatigue; Screening for prostate cancer; Lipid screening Allergies Active Allergy Reactions Criticality Noted Date Comments Cat Dander 05/03/2020 Nasal congestion Dog Dander 05/03/2020 Nasal congestion Dust 05/03/2020 Nasal congestion Birds 05/03/2020 Duck, chicken, geese--nasal congestion Horse-Derived Products 05/03/2020 Allergic to dander--nasal congestion Mixed Grasses 05/03/2020 Nasal congestion Molds & Smuts 05/03/2020 Nasal congestion Nickel 05/03/2020 rash documented as of this encounter (statuses as of 08/16/2023) Medications No known medicationsdocumented as of this encounter (statuses as of 08/16/2023) Active Problems Problem Noted Date Diagnosed Date Dyslipidemia 03/06/2021 Pulmonary nodules 03/06/2021 Tobacco use disorder 08/16/1998 documented as of this encounter (statuses as of 08/16/2023) Immunizations Name Administration Dates Next Due Pneumococcal Polysaccharide PPV23 (Pneumovax) Seasonal Influenza Virus Vac cine, Unspecified Formulation 04/27/2015,04/25/2010 Seasonal Influenza, Split, IIV3, With Preserve, Inj 04/25/2010 TDAP (age 10 and older)(Boostrix) 02/24/2016 TDAP (age 11 and older)(Adacel) 04/15/2005 documented as of this encounter Social History Tobacco Use Types Packs/Day Years Used Date Smoking Tobacco: Every Day Cigarettes 1 39 Started: 1984 Smokeless Tobacco: Never Alcohol Use [...] on file documented as of this encounter Plan of Treatment Upcoming Encounters Date Type Department Care Team (Latest Contact Info) Description 08/26/2023 10:45 AM EST Hospital Encounter ENDO [facility], Endoscopy Room [facility] [address] [place] [phone] Raj Colon MD [address] [place] [address] 08/26/2023 10:45 AM EST - 08/26/2023 11:15 AM EST Surgery ENDO [facility], Endoscopy Room [facility] [address] [place] [phone] Raj Colon MD [address] [place] [address] COLONOSCOPY FLEXIBLE PROXIMAL DIAGNOSTIC 08/28/2023 5:00 PM EST Imaging Radiology [address] [place] [address] 10/07/2023 8:00 AM EDT Office Visit Sleep Disorders Ctr [facility] [address] [place] [phone] Fatemeh Varela DO [address] [place] [address] 11/11/2023 5:00 PM EDT Office Visit [facility] [place] [address] Areli Simon CRNP [address] [place] [address] 11/27/2023 2:00 PM EDT Office Visit Audiology [facility] [address] [place] [address] Patricia Schumacher Au.D. [address] [place] [address] Pending Results Name Type Priority Associated Diagnoses Date /Time CBC WITH WBC DIFFERENTIAL AND ANEMIA REFLEX WORKUP Lab Routine Malaise and fatigue 08/16/2023 8:10 AM EST COMPREHENSIVE METABOLIC PANEL Lab Routine Malaise and fatigue 08/16/2023 8:10 AM EST PSA Lab Routine Screening for prostate cancer 08/16/2023 8:10 AM EST LIPID PANEL WITH DIRECT LDL IF TG IS HIGH Lab Routine Lipid screening 08/16/2023 8:10 AM EST TESTOSTERONE, TOTAL Lab Routine Malaise and fatigue 08/16/2023 8:10 AM EST TSH Lab Routine Malaise and fatigue 08/16/2023 8:10 AM EST ANEMIA REFLEX CHEMISTRY HOLD Lab Routine Malaise and fatigue 08/16/2023 8:10 AM EST Scheduled Procedures Name Priority Associated Diagnoses Date/Ti me COLONOSCOPY FLEXIBLE PROXIMAL DIAGNOSTIC Recall History of colonic polyps Change in bowel habits 08/26/2023 10:45 AM EST Health Maintenance Due Date Last Done Comments Hepatitis B (1 of 3 - 3-dose series) 1967 COVID-19 Vaccine (#1) 1967 HIV Screening 1982 Hepatitis C Screening 1985 Pneumococcal Vaccine: Pediatrics (0 to 5 Years) and At-Risk Patients (6 to 64 Years) (2 - PCV) 10/04/2010 10/04/2009 Zoster Vaccines (1 of 2) 2017 Depression Screening 04/03/2021 04/03/2020 Influenza Vaccine (FLU shot) (#1) 2023 04/27/2015, 04/25/2010, 04/25/2010 COLONOSCOPY-EVERY 5 YRS AGES 18-100 05/15/2025 05/15/2020, 05/15/2020, 12/30/2016, Additional history exists DTaP,Tdap,and Td Vaccines (3 - Td or Tdap) 02/23/2026 02/24/2016, 04/15/2005 Lipid Panel 03/27/2026 03/27/2021, 04/07/2020 COLONOSCOPY-ANNUAL AGES 18-100 Discontinued 05/15/2020, 05/15/2020, 12/30/2016, Additional history exists LUNG CANCER SCREENING - USE SMARTSET 91762 Completed 08/09/2020, 01/30/2020 GARDASIL-HPV IMMUNIZATION SERIES Aged Out No longer eligible based on patient's age to complete this topic MENINGOCOCCAL (MENACTRA/MENVEO) Aged Out No longer eligible based on patient's age to complete this topic documented as of this encounter Medical Devices Not on filedocumented as of this encounter Procedures Procedure Name Priority Date/Time Associated Diagnosis Comments ANEMIA CBC Routine 08/16/2023 8:10 AM EST Malaise and fatigue DIFFERENTIAL, AUTOMATED Routine 08/16/2023 8:10 AM EST Malaise and fatigue documented in this encounter Results * DIFFERENTIAL, AUTOMATED (08/16/2023 8:10 AM EST) WBC 8.37 4.00 - 10.80 K/uL 08/16/2023 8:19 AM EST [facility] Neutrophils % 62.6 40.0 - 75.0 % 08/16/2023 8:19 AM EST [facility] Lymphocytes % 23.8 18.0 - 42.0 % 08/16/2023 8:19 AM EST [facility] Monocytes % 10.6 1.0 - 11.0 % 08/16/2023 8:19 AM EST [facility] Eosinophils % 2.4 0.0 - 6.0 % 08/16/2023 8:19 AM EST [facility] Basophils % 0.6 0.0 - 2.0 % 08/16/2023 8:19 AM EST [facility] Absolute Neutrophils 5.24 1.80 - 7.70 K/uL 08/16/2023 8:19 AM EST [facility] Absolute Lymphocytes 1.99 1.00 - 4.80 K/ul 08/16/2023 8:19 AM EST [facility] Absolute Monocytes 0.89 0.00 - 1.10 K/uL 08/16/2023 8:19 AM EST [facility] [place] Absolute Eosinophils 0.20 0.00 - 0.70 K/uL 08/16/2023 8:19 AM EST [facility] Absolute Basophils 0.05 0.00 - 0.20 K/uL 08/16/2023 8:19 AM EST [facility] Blood Venous blood specimen / Unknown Venipuncture / Unknown 08/16/2023 8:10 AM EST 08/16/2023 8:10 AM EST Carlos Cortez MD LAB BLOOD [facility] [place] [id number] * ANEMIA CBC (08/16/2023 8:10 AM EST) WBC 8.37 4.00 - 10.80 K/uL 08/16/2023 8:19 AM EST [facility] RBC 4.58 4.50 - 5.25 M/uL 08/16/2023 8:19 AM EST [facility] HGB 15.8 14.0 - 16.8 g/dL 08/16/2023 8:19 AM EST [facility] Comment: Anemia reflex testing triggers on a HGB < 12.0 for Females and HGB < 13.0 for Males in accordance with the WHO Anemia Guidelines Anemia reflex testing triggers on a HGB < 12.0 for Females and HGB < 13.0 for Males in accordance with the WHO Anemia Guidelines HCT 45.8 40.0 - 48.4 % 08/16/2023 8:19 AM EST [facility] MCV 100.0 82.0 - 99.5 fL 08/16/2023 8:19 AM EST [facility] MCH 34.5 27.0 - 34.0 pg 08/16/2023 8:19 AM EST [facility] MCHC 34.5 32.0 - 36.0 g/dL 08/16/2023 8:19 AM EST [facility]10 RDW 13.1 11.5 - 15.5 % 08/16/2023 8:19 AM EST [facility] PLT 285 140 - 400 K/uL 08/16/2023 8:19 AM EST [facility] MPV 8.9 6.6 - 11.1 fL 08/16/2023 8:19 AM EST [facility] Blood Venous blood specimen / Unknown Venipuncture / Unknown 08/16/2023 8:10 AM EST 08/16/2023 8:10 AM EST Carlos Cortez MD LAB BLOOD ORDERA BLES Performing Organization Address City/State/[facility] Co de Phone Number [facility] 57-10 [address] [place] [address] documented in this encounter Visit Diagnoses Diagnosis Malaise and fatigue Other malaise and fatigue Screening for prostate cancer Special screening for malignant neoplasm of prostate Lipid screening Screening for lipoid disorders History of colonic polyps Personal history of colonic polyps Change in bowel habits Other symptoms involving digestive system documented in this encounter Advance Directives Latest Code Status on File Code Status Date Activated Date Inactivated Comments Full Code 03/30/2021 9:55 AM 03/30/2021 5:43 PM This order reflects the patients wishes and were consensually agreed upon. Care Teams Bridge Inspector Relationship Specialty Start Date End Date Rashad Garcia MD [address] [place] [address] PCP - General Family Medicine 03/30/21 documented as of this encounter
--- OUTSIDE RECORDS SUMMARY | 2023-08-29 07:47 | External Medical Summary | Summary of Care ---
Author Name Unknown Organization [facility] Address [address] [facility] [place] [address] Phone [phone] Care Team Providers Care Caddie Supervisor Name Role Phone Rashad Garcia MD Primary Care Provider [phone] Encounter Details Date Type Department Care Team (Late st Contact Info) Description 08/15/2023 Orders Only PATIENT PORTAL DO NOT DELETE THIS DEPT USED BY [place] [id number] Allergies Active Allergy Reactions Criticality Noted Date Comments Cat Dander 05/03/2020 Nasal congestion Dog Dander 05/03/2020 Nasal congestion Dust 05/03/2020 Nasal congestion Birds 05/03/2020 Duck, chicken, geese--nasal congestion Horse-Derived Products 05/03/2020 Allergic to dander--nasal congestion Mixed Grasses 05/03/2020 Nasal congestion Molds & Smuts 05/03/2020 Nasal congestion Nickel 05/03/2020 rash documented as of this encounter (statuses as of 08/15/2023) Medications No known medicationsdocumented as of this encounter (statuses as of 08/15/2023) Active Problems Problem Noted Date Diagnosed Date Dyslipidemia 03/06/2021 Pulmonary nodules 03/06/2021 Tobacco use disorder 08/16/1998 documented as of this encounter (statuses as of 08/15/2023) Immunizations Name Administration Dates Next Due Pneumococcal [...] EST Hospital Encounter ENDO [facility], Endoscopy Room [facility] [address] [phone] Raj Colon MD [address] [place] [address] 08/26/2023 10:45 AM EST - 08/26/2023 11:15 AM EST Surgery ENDO [facility], Endoscopy Room [facility] [address] [phone] Raj Colon MD [address] [place] [address] COLONOSCOPY FLEXIBLE PROXIMAL DIAGNOSTIC 08/28/2023 5:00 PM EST Imaging Radiology [facility] [address] [place] [address] 10/07/2023 8:00 AM EDT Office Visit Sleep Disorders Ctr [facility] [address] [phone] Fatemeh Varela DO [address] [place] [address] 11/11/2023 5:00 PM EDT Office Visit Family Practice [facility] [address] [place] [address] Areli Simon CRNP [address] [place] [address] 11/27/2023 2:00 PM EDT Office Visit Audiology [facility] [address] [place] [address] Patricia Schumacher Au.D. 132 [facility] [place] [address] Scheduled Procedures Name Priority Associated Diagnoses Date/Ti [...] exists LUNG CANCER SCREENING - USE SMARTSET [id number] Completed 08/09/2020, 01/30/2020 GARDASIL-HPV IMMUNIZATION SERIES Aged Out No longer eligible based on patient's age to complete this topic MENINGOCOCCAL (MENACTRA/MENVEO) Aged Out No longer eligible based on patient's age to complete this topic documented as of this encounter Medical Devices Not on filedocumented as of this encounter Advance Directives Latest Code Status on File Code Status Date Activated Date Inactivated Comments Full Code 03/30/2021 9:55 AM 03/30/2021 5:43 PM This order reflects the patients wishes and were consensually agreed upon. Care Teams Caddie Supervisor Relationship Specialty Start Date End Date Rashad Garcia MD [address] [facility] [place] [address] PCP - General Family Medicine 03/30/21 documented as of this encounter
--- OUTSIDE RECORDS SUMMARY | 2023-08-29 07:47 | External Medical Summary | Summary of Care ---
Author Name Unknown Organization [facility] Address [address] [place] [address] Phone [phone] Care Team Providers Care Waste/Materials Exchange Specialist Name Role Phone Rashad Garcia MD Primary Care Provider [phone] Reason for Referral * (Within 10 days (routine)) - Pending Review Specialty Diagnoses / Procedures Referred By Kilo henriquez Referred To Contact Radiology Diagnoses History of tobacco abuse Procedures LUNG CANCER SCREENING PROGRAM REFERRAL Elizabeth Pittman CRNP [address] [place] [address] Referral ID Status Reason Start Date Expiration Date V isits Requested Visits Authorized [id number] Pending Review 08/14/[phone] Encounter Details Date Type Department Care Team (Late st Contact Info) Description 08/14/2023 Orders Only STAIR LUNG NODULE [address] [place] [address] Elizabeth Pittman CRNP [address] [place] [address] History of tobacco abuse* Allergies Active Allergy Reactions Criticality Noted Date Comments Cat Dander 05/03/2020 Nasal congestion Dog Dander 05/03/2020 Nasal congestion Dust 05/03/2020 Nasal congestion Birds 05/03/2020 Duck, chicken, geese--nasal congestion Horse-Derived Products 05/03/2020 Allergic to dander--nasal congestion Mixed Grasses 05/03/2020 Nasal congestion Molds & Smuts 05/03/2020 Nasal congestion Nickel 05/03/2020 rash documented as of this encounter (statuses as of 08/14/2023) Medications No known medicationsdocumented as of this encounter (statuses as of 08/14/2023) Active Problems Problem Noted Date Diagnosed Date Dyslipidemia 03/06/2021 Pulmonary nodules 03/06/2021 Tobacco use disorder 08/16/1998 documented as of this encounter (statuses as of 08/14/2023) Immunizations Name Administration Dates Next Due Pneumococcal [...] Care Team (Late st Contact Info) Description 10/07/2023 8:00 AM EDT Office Visit Sleep Disorders Ctr [facility] [address] [phone] Fatemeh Varela DO [address] [place] [address] 11/11/2023 5:00 PM EDT Office Visit Family Practice [facility] [address] [address] Areli Simon CRNP [address] [place] [address] 11/27/2023 2:00 PM EDT Office Visit Audiology [facility] [address] [place] [address] Patricia Schumacher Au.D. [address] [place] [address] Scheduled Orders Name Type Priority Associated Diagnoses Orde r Schedule LUNG CANCER SCREENING PROGRAM REFERRAL Medical Imaging Routine History of tobacco abuse Ordered: 08/14/2023 Scheduled Procedures Name Priority Associated Diagnoses Date/Ti me COLONOSCOPY FLEXIBLE PROXIMA L DIAGNOSTIC Recall History of colonic polyps Health Maintenance Due Date Last Done Comments [...] exists LUNG CANCER SCREENING - USE SMARTSET [id number] Completed 08/09/2020, 01/30/2020 GARDASIL-HPV IMMUNIZATION SERIES Aged Out No longer eligible based on patient's age to complete this topic MENINGOCOCCAL (MENACTRA/MENVEO) Aged Out No longer eligible based on patient's age to complete this topic documented as of this encounter Medical Devices Not on filedocumented as of this encounter Visit Diagnoses Diagnosis History of tobacco abuse- Primary Personal history of tobacco use, presenting hazards to health documented in this encounter Advance Directives Latest Code Status on File Code Status Date Activated Date Inactivated Comments Full Code 03/30/2021 9:55 AM 03/30/2021 5:43 PM This order reflects the patients wishes and were consensually agreed upon. Care Teams Waste/Materials Exchange Specialist Relationship Specialty Start Date End Date Rashad Garcia MD [address] [place] [address] PCP - General Family Medicine 03/30/21 documented as of this encounter
--- OUTSIDE RECORDS SUMMARY | 2023-08-29 07:47 | External Medical Summary | Summary of Care ---
Author Name Unknown Organization [facility] Address [address] [place] [address] Phone [phone] Care Team Providers Care Field Artillery Operations Man Name Role Phone Rashad Garcia MD Primary Care Provider [phone] Reason for Visit * Reason Onset Date Comments STAIR Lung Nodule 08/14/2023 Encounter Details Date Type Department Care Team (Late st Contact Info) Description 08/14/2023 Telephone STAIR LUNG NODULE [address] [place] [address] Program, Stair [address] [place] [address] STAIR Lung Nodule Allergies Active Allergy Reactions Criticality Noted Date [...] on file documented as of this encounter Miscellaneous Notes * Telephone Encounter - Kayleen Butt LPN - 08/14/2023 8:42 AM EST Patient managed in STAIR Program for Pulmonary Nodule - banner added documented in this encounter Plan of Treatment Upcoming Encounters Date Type Department Care Team (Late st Contact Info) Description 10/07/2023 8:00 AM EDT Office Visit Sleep Disorders Ctr [facility] [address] [facility] [place] [phone] Fatemeh Varela DO [address] [place] [address] 11/11/2023 5:00 PM EDT Office Visit Family Practice [facility] [address] [place] [address] Areli Simon CRNP [address] [place] [address] 11/27/2023 2:00 PM EDT Office Visit Audiology [facility] [address] [place] [address] Patricia Schumacher Au.D. [address] [place] [address] Scheduled Procedures Name Priority Associated Diagnoses Date/Ti [...] exists LUNG CANCER SCREENING - USE SMARTSET [id number] Completed 08/09/2020, 01/30/2020 GARDASIL-HPV IMMUNIZATION SERIES Aged [...] and were consensually agreed upon. Care Teams Field Artillery Operations Man Relationship Specialty Start Date End Date Rashad Garcia MD [address] [place] [address] PCP - General Family Medicine 03/30/21 documented as of this encounter
--- OUTSIDE RECORDS SUMMARY | 2023-08-29 07:47 | External Medical Summary | Summary of Care ---
Author Name Unknown Organization [facility] Address [address] [place] [address] Phone [phone] Care Team Providers Care Hydro Excavation Operator Name Role Phone Rashad Garcia MD Primary Care Provider [phone] Reason for Visit * Reason Onset Date Comments Appointment 08/13/2023 Encounter Details Date Type Department Care Team (Late st Contact Info) Description 08/13/2023 Telephone Family Practice [facility] [address] [place] [address] Rashad Garcia MD [address] [place] [address] Appointment Allergies Active Allergy Reactions Criticality Noted Date [...] Date Smoking Tobacco: Every Day Cigarettes 1 Started: 08/11/1985 Smokeless Tobacco: Never Alcohol Use Standard Drinks/Week [...] encounter Miscellaneous Notes * Telephone Encounter - Arin Reyes OSA - 08/15/2023 4:02 PM EST Colon 08/26 * Telephone Encounter - Chloé Zarate OSA - 08/13/2023 6:49 PM EST Please call patient to schedule colonoscopy. Thank you. documented in this encounter Plan of Treatment Upcoming Encounters Date Type Department Care Team (Latest Contact Info) Description 08/26/2023 10:45 AM EST Hospital Encounter ENDO [facility], Endoscopy Room [facility] [address] [place] [phone] Raj Colon MD [address] [place] [address] 08/26/2023 10:45 AM EST - 08/26/2023 11:15 AM EST Surgery ENDO [facility], Endoscopy Room [facility] [address] [place] [phone] Raj Colon MD [address] [place] [address] COLONOSCOPY FLEXIBLE PROXIMAL DIAGNOSTIC 08/28/2023 5:00 PM EST Imaging Radiology [facility] [address] [place] [address] 10/07/2023 8:00 AM EDT Office Visit Sleep Disorders Ctr [facility] [address] [place] [phone] Fatemeh Varela, [address] [place] [address] 11/11/2023 5:00 PM EDT Office Visit Family Practice [facility] [address] [place] [address] Areli Simon CRNP [address] [place] [address] 11/27/2023 2:00 PM EDT Office Visit Audiology [facility] [address] [place] [address] Patricia Schumacher Au.D. [address] [place] [address] Scheduled Procedures Name Priority Associated Diagnoses Date/Ti [...] exists LUNG CANCER SCREENING - USE SMARTSET [id number] Completed 08/09/2020, 01/30/2020 GARDASIL-HPV IMMUNIZATION SERIES Aged [...] and were consensually agreed upon. Care Teams Hydro Excavation Operator Relationship Specialty Start Date End Date Rashad Garcia MD [address] [place] [address] PCP - General Family Medicine 03/30/21 documented as of this encounter
--- OUTSIDE RECORDS SUMMARY | 2023-08-29 07:47 | External Medical Summary | Summary of Care ---
Author Name Unknown Organization [facility] Address [address] [place] [address] Phone [phone] Care Team Providers Care Shipping Associate Name Role Phone Rashad Garcia MD Primary Care Provider [phone] Reason for Referral * Ancillary Services (Within 30 days (routine)) - Pending Review Specialty Diagnoses / Procedures Referred By Kilo henriquez Referred To Contact Audiology Diagnoses Tinnitus, bilateral Carlos Cortez MD [address] [place] [address] Referral ID Status Reason Start Date Expiration Date Visits Requested Visits Authorized [id number] Pending Review Ancillary Services Required 08/13/[phone] Question Answer Referral Priority Within 30 days (routine) Where should this appointment be scheduled? [facility] Reason for Referral: Tinnitus (ringing in ear) * Ancillary Services (Within 30 days (routine)) - Pending Review Specialty Diagnoses / Procedures Referred By Kilo henriquez Referred To Contact Gastroenterology Diagnoses Change in stool Carlos Cortez MD [address] [email or web address] [address] Referral ID Status Reason Start Date Expiration Date Visits Requested Visits Authorized [id number] Pending Review Ancillary Services Required 08/13/[phone] Question Answer Referral Priority Within 30 days (routine) Where should this appointment be scheduled? [facility] Comments ALERT: Do not order for pediatric patients (18 years or younger). Cancel off screen and order PEDS GASTROENTEROLOGY CONSULT (Type: 1 visit only-Evaluate and Treat) The following Pt. Instructions are available: - Gastro Colonoscopy Prep Instructions [[id number]] - Gastro Colonoscopy Prep Instructions (Greenlandic Version) [[id number]] Go to the Pt. Instructions section within the Visit Navigator to access. Colonoscopy ASGE Guidelines: Change in stool, hx polyps, bloating. ADDITIONAL INFORMATION 1. Is the patient on Coumadin? No 2. Is the patient on Pradaxa? No * Evaluate & Treat - Unlimited Visits (Within 10 days (routine)) - Pending Review Specialty Diagnoses / Procedures Referred By Contac t Referred To Contact Pulmonary Diseases / Pulmonary Diagnoses Tobacco abuse disorder Carlos Cortez MD [address] [place] [address] Referral ID Status Reason Start Date Expiration Date Visits Requested Visits Authorized [id number] Pending Review Specialty Services Required 08/13/[phone] Question Answer Referral Priority Within 10 Days (Routine) Primary Reason for Referral? Lung Nodule/Mass * Evaluate & Treat - Unlimited Visits (Within 30 days (routine)) - Pending Review Specialty Diagnoses / Procedures Referred By Kilo henriquez Referred To Contact Sleep Medicine / Sleep Disorders Diagnoses Malaise and fatigue Carlos Cortez MD [address] [place] [address] Referral ID Status Reason Start Date Expiration Date Visits Requested Visits Authorized [id number] Pending Review Specialty Services Required 08/13/2023 2 2 Question Answer Referral Priority Within 30 days (routine) Where should this appointment be scheduled? [facility] SLEEP MED ADULT REFERRAL Sleep Apnea Testing and Management Does the patient snore and/or gasp at night or has been told they stop breathing at night? Yes Reason for Visit * Reason Comments Return Visit -Pt reports abdomina l cramping, bloating, loose stools for the last few months. Denies N/V. -Reports bilateral ringing in ears for last 1 to 1.5 years-Reports concerns for sleep apnea-gasping for air, snoring, wakes up fatigued-Chest xray-was to have a 6 month follow up for pulm nodules. Did not completed. -Lab orders Encounter Details Date Type Department Care Team (Late st Contact Info) Description 08/13/2023 4:20 PM EST Office Visit Family [facility] [address] [place] [id number] Carlos Cortez MD [address] [place] [id number] Malaise and fatigue*; Screening for prostate cancer; Lipid screening; Multiple lung nodules; Tobacco abuse disorder; Change in stool; Tinnitus, bilateral Allergies Active Allergy Reactions Criticality Noted Date Comments Cat Dander 05/03/2020 Nasal congestion Dog Dander 05/03/2020 Nasal congestion Dust 05/03/2020 Nasal congestion Birds 05/03/2020 Duck, chicken, geese--nasal congestion Horse-Derived Products 05/03/2020 Allergic to dander--nasal congestion Mixed Grasses 05/03/2020 Nasal congestion Molds & Smuts 05/03/2020 Nasal congestion Nickel 05/03/2020 rash documented as of this encounter (statuses as of 08/13/2023) Medications Medication Sig Dispensed Refills Start Date End Date Status Sildenafil Citrate (VIAGRA) 50 MG TabletIndications:I mpotence of organic origin One pill by mouth daily as needed. 1-4 hours before intercourse, no more than 1 dose in 24 hours. 10 Tab 5 03/30/2019 08/13/2023 Discontinued (Medication List Clean Up) cyclobenzaprine (FLEXERIL) 10 MG TabletIndications:N ashley pain Take 1 Tab by mouth at bedtime as needed for Muscle spasms. 30 Tab 0 03/23/2020 08/13/2023 Discontinued (Medication List Clean Up) Atorvastatin Calcium 20 MG Oral Tablet (LIPITOR)Indication s:Mixed dyslipidemia Take 1 Tab by mouth daily. 30 Tab 5 04/10/2020 08/13/2023 Discontinued (Medication List Clean Up) diphenhydrAMINE HCl 25 MG Oral Capsule (BENADRYL) Take 25 mg by mouth as needed for Itching. 0 08/13/2023 Discontinued (Medication List Clean Up) Aspirin 81 MG Oral Tablet Chewable Take 1 Tab by mouth daily. with food. 100 Tab 5 03/06/2021 08/13/2023 Discontinued (Medication List Clean Up) Loratadine 10 MG Oral Tablet Take 10 mg by mouth daily. 0 08/13/2023 Discontinued (Medication List Clean Up) documented as of this encounter (statuses as of 08/13/2023) Active Problems Problem Noted Date Diagnosed Date Dyslipidemia 03/06/2021 Pulmonary nodules 03/06/2021 Tobacco use disorder 08/16/1998 documented as of this encounter (statuses as of 08/13/2023) Immunizations Name Administration Dates Next Due Pneumococcal [...] Sign Reading Time Taken Comments Blood Pressure 134/82 08/13/2023 4:26 PM EST Pulse 76 08/13/2023 4:26 PM EST Temperature 36.2 C (97.1 F) 08/13/2023 4:26 PM ES T Respiratory Rate 20 08/13/2023 4:26 PM EST Oxygen Saturation 97% 08/13/2023 4:26 PM EST Inhaled Oxygen Concentration - - Weight 81.3 kg (179 lb 2 oz) 08/13/2023 4:26 PM EST Height 188 cm (6' 2.02") 08/13/2023 4:26 PM EST Body Mass Index 22.99 08/13/2023 4:26 PM EST documented in this encounter Progress Notes * Carlos Cortez MD - 08/13/2023 4:57 PM EST This patient is suspected to have obstructive sleep apnea given snoring, witnessed apneas and significant daytime sleepiness. A sleep study was therefore ordered. We discussed treatment modalities for BUCKY including PAP. SUBJECTIVE: Ayan Sloan is a 58 year old male here for Return Visit (-Pt reports abdominal cramping, bloating, loose stools for the last few months. Denies N/V. /-Reports bilateral ringing in ears for last 1 to 1.5 years/-Reports concerns for sleep apnea-gasping for air, snoring, wakes up fatigued/-Chest xray-was to have a 6 month follow up for pulm nodules. Did not completed. /-Lab orders) . Here for health ck. C/o fatigue, not rested, +witnessed apnea. Very tired in afternoon. Some bloating. No wt change. NoBRBPR. Wants new colonoscopy. Slightly thinner stools Trying to inc fiber in diet. ROS: Negative except above. 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 barretts esophagus , small hiatal hernia repeat 1 yr Benign neoplasm of colon 10/10/09 multiple polyps-adenomatous tissue repeat in one y Contusion of abdominal wall Dyslipidemia 03/06/2021 Other specified disorders of rotator cuff syndrome of shoulder and allied disorders Prune belly syndrome Pulmonary nodules 03/06/2021 Past Surgical History: Procedure Laterality Date COLONOSCOPY W/ LESION REMOVAL, SNARE 10/10/2009 multiple polyps-adenomatous tissue repeat in one yr COLONOSCOPY, DIAGNOSTIC (RECTUM) 05/15/2020 normal, repeat 5 yrs / COLONOSCOPY FLEXIBLE PROXIMAL DIAGNOSTIC performed by Shonda Bell MD at [facility] SINUS SURGERY PROCEDURE NEC SMALL BOWEL ENDOSCOPY W/BX 05/16/2010 barretts esophagus , small hiatal hernia repeat 1 yr UMBIL HERNIA REPAIR (REDUCIBLE) AGE 5+YR N/A 03/30/2021 REPAIR UMBILICAL HERNIA AGE 5 AND OVER performed by Maxim Garcia MD at [facility] Social History Socioeconomic History Marital status: Spouse name: Not on file Number of children: Not on file Years of education: Not on file Highest education level: Not on file Occupational History 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 Tobacco Use Smoking status: Every Day Packs/day: 1 Types: Cigarettes Start date: 08/11/1985 Smokeless tobacco: Never Vaping Use Vaping Use: Never used Substance and Sexual Activity Alcohol use: Yes Comment: beer Drug use: No Sexual activity: Yes Partners: Female Other Topics Concern Not on file Social History Narrative Not on file Social Determinants of Health Financial Resource Strain: Not on file Food Insecurity: No Food Insecurity (03/30/2019) Hunger Vital Sign Worried About Running Out of Food in the Last Year: Never true Ran Out of Food in the Last Year: Never true Transportation Needs: Not on file Physical Activity: Not on file Stress: Not on file Social Connections: Not on file Intimate Partner Violence: Not on file Housing Stability: Not on file Family History Problem Relation Age of Onset Cancer Mother lung Cancer Father prostate passed at 65 No current outpatient medications on file. No current facility-administered medications for this visit. Physical: BP 134/82 | Pulse 76 | Temp 36.2 C (97.1 F) (Tympanic) | Resp 20 | Ht 1.88 m (6' 2.02") | Wt 81.3 kg (179 lb 2 oz) | SpO2 97% | BMI 22.99 kg/m | BSA 2.06 m General-No apparent Distress Head, Eyes, Ears, Nose, Throat--Normocephalic, atraumatic Neck-Supple Lymph-no lymphadenopathy Lungs-Clear to Auscultation bilaterally Cardiovascular--Regular rate & Rhythm, +s1, s2, no murmur Abdomen-soft, nontender, nondistended + bowel sounds Extremities--no edema Neuro-alert & oriented x3 (R53.81, R53.83) Malaise and fatigue (primary encounter diagnosis) Plan: SLEEP MEDICINE REFERRAL OP, CBC WITH WBC DIFFERENTIAL AND ANEMIA REFLEX WORKUP, COMPREHENSIVE METABOLIC PANEL, TESTOSTERONE, TOTAL, TSH R/o BUCKY If T is low, needs to treat suspected BUCKY first (Z12.5) Screening for prostate cancer Plan: PSA (Z13.220) Lipid screening Plan: LIPID PANEL WITH DIRECT LDL IF TG IS HIGH (R91.8) Multiple lung nodules Plan: STAIR-referral >20pk yr hx (Z72.0) Tobacco abuse disorder Plan: STAIR LUNG NODULE REFERRAL OP (SYSTEM FOR TRACKING ABNORMALITIES OF IMPORTANCE RELIABLY) Encouraged tobacco cessation. Counseled on use, risk, benefits, and alternatives of medications. Questions answered, patient expressed understanding. Pt elects to try : precontemplative. . (R19.5) Change in stool Plan: COLONOSCOPY, GI REFERRAL OP (H93.13) Tinnitus, bilateral Plan: AUDIOLOGY REFERRAL OP (This note was completed using the dictation program Fluency Direct. As such, there may be misspellings, word substitutions, or other variations that should not change the essence of the clinical content of this encounter note.If there is need for further clarification, please direct questions to the provider listed above.) Carlos Cortez MD documented in this encounter Nursing Notes * Lizzeth Putnam LPN - 08/13/2023 4:26 PM EST The patient has been properly identified by confirmation of name and date of . Chief Complaint Patient presents with Return Visit Pt reports abdominal cramping, bloating, loose stools for the last few months. Denies N/V. documented in this encounter Plan of Treatment Upcoming Encounters Date Type Department Care Team (Late st Contact Info) Description 10/07/2023 8:00 AM EDT Office Visit Sleep Disorders Ctr [facility] [address] [phone] Fatemeh Vraela DO [address] [place] [address] 11/11/2023 5:00 PM EDT Office Visit Family Practice [facility] [address] [place] [address] Areli Simon CRNP [address] [place] [address] 11/27/2023 2:00 PM EDT Office Visit Audiology [facility] [address] [place] [address] Patricia Schumacher Au.D. [address] [place] [address] Scheduled Orders Name Type Priority Associated Diagnoses Orde r Schedule CBC WITH WBC DIFFERENTIAL AND ANEMIA REFLEX WORKUP Lab Routine Malaise and fatigue Expected: 08/13/2023 (Approximate), Expires: 08/13/2024 COMPREHENSIVE METABOLIC PANEL Lab Routine Malaise and fatigue Expected: 08/13/2023 (Approximate), Expires: 08/12/2024 PSA Lab Routine Screening for prostate cancer Expected: 08/13/2023 (Approximate), Expires: 08/12/2024 LIPID PANEL WITH DIRECT LDL IF TG IS HIGH Lab Routine Lipid screening Expected: 08/13/2023, Expires: 08/13/2024 TESTOSTERONE, TOTAL Lab Routine Malaise and fatigue Expected: 08/13/2023 (Approximate), Expires: 08/12/2024 TSH Lab Routine Malaise and fatigue Expected: 08/13/2023 (Approximate), Expires: 08/12/2024 Scheduled Procedures Name Priority Associated Diagnoses Date/Ti me COLONOSCOPY FLEXIBLE PROXIMA L DIAGNOSTIC Recall History of colonic polyps Scheduled Referrals Name Type Priority Associated Diagnoses Order Schedule SLEEP MEDICINE REFERRAL OP Referral Within 30 days (routine) Malaise and fatigue Ordered: 08/13/2023 STAIR LUNG NODULE REFERRAL OP (SYSTEM FOR TRACKING ABNORMALITIES OF IMPORTANCE RELIABLY) Referral Within 10 days (routine) Tobacco abuse disorder Ordered: 08/13/2023 COLONOSCOPY, GI REFERRAL OP Referral Within 30 days (routine) Change in stool Ordered: 08/13/2023 AUDIOLOGY REFERRAL OP Referral Within 30 days (routine) Tinnitus, bilateral Ordered: 08/13/2023 Health Maintenance Due Date Last Done Comments [...] Discontinued 05/15/2020, 05/15/2020, 12/30/2016, Additional history exists GARDASIL-HPV IMMUNIZATION SERIES Aged Out No longer eligible based on patient's age to complete this topic MENINGOCOCCAL (MENACTRA/MENVEO) Aged Out No longer eligible based on patient's age to complete this topic documented as of this encounter Medical Devices Not on filedocumented as of this encounter Visit Diagnoses Diagnosis Malaise and fatigue- Primary Other malaise and fatigue Screening for prostate cancer Special screening for malignant neoplasm of prostate Lipid screening Screening for lipoid disorders Multiple lung nodules Other nonspecific abnormal finding of lung field Tobacco abuse disorder Tobacco use disorder Change in stool Nonspecific abnormal finding in stool contents Tinnitus, bilateral Unspecified tinnitus documented in this encounter Advance Directives Latest Code Status on File Code Status Date Activated Date Inactivated Comments Full Code 03/30/2021 9:55 AM 03/30/2021 5:43 PM This order reflects the patients wishes and were consensually agreed upon. Care Teams Shipping Associate Relationship Specialty Start Date End Date Rashad Garcia MD [address] [address] PCP - General Family Medicine 03/30/21 documented as of this encounter
[2023-08-29 07:58] LABS: Folate (Folic Acid),Ser orPlas 13.71 ng/ml (>5.38)
[2023-08-29] MEDS: ASPIRIN 81 MG ECTAB PO SCH (08:51)
[2023-08-29 08:54] LABS: Estimated Average Glucose 114 mg/dl; Hemoglobin A1C 5.6 % (4.5-5.6)
--- NOTE | 2023-08-29 14:13 | Ultrasound Report ---
LEFT LOWER EXTREMITY VENOUS DOPPLER CLINICAL HISTORY: Left lower extremity pain. Evaluate for deep venous thrombus. COMPARISON STUDY: No previous studies for comparison. TECHNIQUE: Sonography of the deep venous system of the left lower extremity was performed. Compressi on and augmentation were evaluated. FINDINGS: The left common femoral, superficial femoral and popliteal veins were compressible. Augmen tation was normal. Flow was shown within the deep calf vessels. IMPRESSION: No evidence of deep venous thrombus within the left lower extremity. ACT 112: Negative or not required by law. Electronically signed by: Jah Magana M.D. 08/29/2023 2:11 PM
--- NOTE | 2023-08-29 15:15 | Pharmacy Report ---
- Date of Service August 29, 2023 - Pharmacy CVA/TIA Medication Review Medications to Prevent Stroke handout has been added to the patients discharge packet. Antiplatelet(s) * aspirin 81mg Cholesterol * High intensity statin: atorvastatin 40 mg daily DVT Prophylaxis * SCD knee Therapeutic Anticoagulation * No history of Afib/Aflutter noted Type 2 Diabetes * Patient does not have T2DM (HbA1c 5.6% 08/29/23)
--- NOTE | 2023-08-29 15:37 | Hospitalist Progress Note ---
Date of Service August 29, 2023 Assessment & Plan (1) TIA (transient ischemic attack): (2) HLD (hyperlipidemia): (3) Tobacco use disorder: Plan per admitting service notes with addendum: This is a 58 year old M who has a hx of HLD and tobacco abuse who presents to ED 2/2 facial numbness, tongue numbness and metallic taste in mouth that started today. He was at work when all of a sudden he developed L facial numbness, tongue numbness and a metallic taste of his mouth prior to arrival. Sx resolved after several minutes prior to coming to ER. Possible TIA - pt reporting fleeting neuro sx of L facial numbness, L side tongue numbness and metallic taste to mouth admit to tele stroke work up Head CT and CTAs unremarkable obtain Brain MRI Echocardiogram continue ASA, start atorvastatin 40mg HS a1c in a.m. fasting lipid panel done as outpatient 08/16/23 total chol 225, HDL 33, LDL 158 PT/OT per protocol obtain lyme screen, b12, folic acid 08/29 Brain MRI:No acute intracranial abnormality. CT angio head:No significant stenosis, occlusion, or aneurysm within the co[place] of [place]. CT angio neck:No stenosis, aneurysm or dissection within the bilateral common carotid, cervical internal carotid or vertebral arteries. Mild atherosclerotic plaque. Echocardiogram: Normal left ventricular wall thickness Left ventricular motion is normal left ventricular systolic function is normal EF 55 to 60% No significant valvular disease Interatrial septum is intact with no atrial septal defect, PFO or intra-atrial shunt Patient was taking aspirin 81 mg p.o. daily but has been on hold for the past 2 weeks due to a possible procedure Currently, usual aspirin 81 mg p.o. daily continue Lipitor 40 mg p.o. at bedtime added Awaiting neurology service recommendations Will also need Zio patch monitoring as outpatient to rule out underlying A-fib Will need neurology follow-up in 2 to 3 weeks Smoking cessation Blood pressure control A1c 5.6, monitor HLD fasting lipid panel done as outpatient 08/16/23 total chol 225, HDL 33, LDL 158 Lipitor 40 mg p.o. daily started Monitor LFTs Tobacco abuse smoking cessation techniques discussed encourage cessation nicotine patch while inpt DVT ppx: SCDS, encourage ambulation FULL CODE PCP: Dr. Garcia Dispo: Anticipate discharge home today after evaluation by neurology service plan of care discussed with patient in detail and at length all questions answered he is understanding, agreeable, comfortable with the plan of care Admission and Anticipated Discharge Date Admission Date: August 28, 2023 Subjective Follow-up for possible TIA symptoms, etc. Seen sitting up in bed, watching TV, comfortable, not in distress States he feels fine overall No recurrence of left face numbness, sensation of numbness on the tongue, metallic taste or any other neurologic deficits while admitted Patient reports intermittent episodes of palpitations for the past few months No syncope, presyncope, chest pain, shortness of breath, nausea or vomiting Also reports localized pain on the posterior calf region, mid/distal area, occurs intermittently while resting, sitting or laying, but not when ambulating or exerting No other new symptoms Review of Systems Review of Systems: all noted and negative except for above Physical Exam Physical Exam: General- oriented x 3, not in distress, speaks in sentences with no effort or accessory muscle use Head- atraumatic Eyes- PERRL, EOMI, anicteric ENT- oropharynx clear Neck- supple, no JVD, no adenopathy, no thyromegaly; carotids +2/2, no bruits appreciated Lungs- clear to auscultation bilaterally, no rales/wheezes Heart- normal rate, regular rhythm; no murmur, no gallop, no rub appreciated Abdomen- normal bowel sounds, nondistended, soft, nontender, no masses or hepatosplenomegaly Extremities- no pretibial edema, no calf tenderness; peripheral pulses intact Neuro- alert, oriented x 3; CN 2-12 grossly intact; motor 5/5 bilaterally;sensation 100% on all extremities; no other gross focal neurologic deficits Skin- warm & dry Results & Data Results & Data Vital Signs (Past 12 Hours) Vital Signs Temp Pulse Pulse Resp BP Pulse Ox O2 Del Method 08/29/23 14:33 81 08/29/23 11:55 36.5 C 65 18 129/67 97 Room Air 08/29/23 08:22 36.4 C L 71 18 125/74 97 Room Air 08/29/23 07:30 69 all noted and reviewed including below
--- NOTE | 2023-08-29 17:47 | Neurology Consultation ---
Date of Consultation August 29, 2023 Assessment & Plan (1) Stroke-like symptoms: Symptoms are most concerning for seizure-like with intermittent Numbness, differential diagnosis also includes TIA versus anxiety related. His MRI shows vague changes of the mesial temporal lobes on the coronal FLAIR sequences. Also mild thickening of the basal manage he is without clear enhancement. There are reports of basal headaches on and off for a year and recurrent "blisters" Plan Consider repeating MRI axial FLAIR sequences within cuts through the corpus callosum with contrast Please obtain LP with opening pressure while laying supine, Send studies for cell count and differential, cytology, flow cytometry, Lyme and TB, HSV , VZV and CMV PCR's. Check for HIV, Histoplasma, Can hold aspirin prior to LP. Check XENA level in the blood. Continue statins Further recommendations to follow Telehealth Consultation Telehealth Information Telehealth Information: I performed this visit using a real-time telehealth connection between my location and the patients location ([facility]). After connecting through interactive tele-video, patient was identified by name and date of and/or wristband check.Patient (or authorized healthcare account services representative) was informed that this was a telemedicine visit and it was being conducted confidentially over secure lines. My office door was closed and no one else was present in the room with me.Patient (or authorized healthcare account services representative) provided consent to proceed with the visit, expressed an u nderstanding of privacy and security of the telemedicine visit, and gave permission to have a hospital account services representative in the room in order to assist with the visit and to conduct portions of the visit, as needed. I informed the patient (or authorized healthcare account services representative) that I reviewed their record and presented the opportunity for them to ask any questions regarding the visit today. The patient agreed to participate. History of Present Illness Reason for Consultation: Headaches and strange metallic taste in the mouth Requesting Physician: MD Wilberto Attending Physician: Vlad Ladd MD History of Present Illness Mr. Luther Botello is a 58-year-old male patient with a PMH of sinusitis, and possible sleep apnea, who presented with a brief episode of metallic taste in his mouth lasting about 2 minutes followed by numbness of the life left side of the face lasted for about another 10 minutes. And resolved. Working diagnosis was considered TIA. Further questioning the patient he tells me that he has not been sleeping well lately with concerns about sleep apnea, he has been a little bit stressed out about his health. He still works and that this event happened to him as he was working, he denies any associated slurred speech weakness or difficulty with gait at this time. However prior to this event for about 2 days he has been having headaches He reports prior events of having metallic taste in the mouth sometimes associated with blurring of his vision, but with no numbness. Reports recurrent upper respiratory illnesses this year, with sores (herpes labialis) that has been very frequent particularly this year He reports that he has had tinnitus for about 2 to 3 years.constant ringing in his ears . He reports dizziness whenever he puts over 4 words, he also reports having had multiple back injuries 2 years ago. Allergies Allergy/AdvReac Type Severity Reaction Status Date / Time No Known Drug Allergies Allergy Mild . Verified 01/30/20 15:12 animal dander Allergy Unknown sinus Verified 08/28/23 13:01 symptoms feathers Allergy Unknown sinus Verified 08/28/23 13:01 symptoms Horse/Equine Containing Allergy Unknown . Verified 08/28/23 13:01 Products mold Allergy Unknown sinus Verified 08/28/23 13:01 sypmtom GRASS [employer] WE[employer]S Allergy Unknown sinus Uncoded 08/28/23 13:01 symptoms Home Medications Medication Instructions Recorded Confirmed Type aspirin 81 mg tablet,delayed 81 mg PO QAM 05/10/19 08/28/23 History release ([place] Low Dose Aspirin) Patient History Medical History (Updated 08/29/23 @ 17:58 by Nellie Morse MD) [place] esophagus Tobacco use disorder HLD (hyperlipidemia) Surgical History Hx of umbilical hernia repair Hx of colonoscopy with polypectomy Hx of sinus surgery Family History Sister Aneurysm Other High cholesterol Prostate cancer Social History (Updated 08/28/23 @ 14:57 by Fany Mckenzie PA-C) Smoking Status: Current every day smoker Tobacco Type: Cigarettes Tobacco Cessation Education Requested by Patient: No Hx Alcohol Use: Yes Alcohol Intake Frequency: Monthly or Less Hx Substance Use: No Preferred Language: Mongolian Communication Ability: Effective Sales Representatives Required: No Beliefs That Will Affect Care: None marital status: Current Living Situation: Spouse and Family Feels Safe at Home: Yes Safety Concerns: Feels Safe At This Time Assistive Devices: None Review of Systems Constitutional: Patient denies weight loss, fever, chills, and night sweats Eyes: Patient denies change in vision, tearing, pain, and redness ENT: Patient denies pain, bleeding, rhinorrhea, and dysphagia Cardiovascular: Patient denies chest pain, palpitation, dyspnea at rest, and dyspnea with exertion Respiratory: Patient denies shortness of breath, cough, wheezing, and productive cough GI: Patient denies reflux, pain, constipation, and diarrhea Skin: Patient denies rash, dryness, and itching Allergies/Immune System: Patient denies rhinorrhea, seasonal allergies, reaction to current MEDS, and joint swelling Endocrine: Patient denies weight loss, weight gain, temperature intolerance, and excessive thirst Neurological: All negative unless mentioned in the HPI Physical Exam General Constitutional: Appearance normally developed Head and face: normocephalic and atraumatic Eyes: no ptosis, no anisocoria, and no dysconjugate gaze Respiratory: normal effort Cardiovascular: regular rhythm and regular rate Abdomen: non distended Skin: no rashes, lesions, or ulcers noted Psychiatric: normal judgement and insight, normal mood, and normal affect NEUROLOGIC EXAMINATION: Mental Status:alert, oriented to time, place, person, normal recent memory, normal remote memory, normal attention span, normal concentration, normal language and normal fund of knowledge Cranial Nerves: CN 2 - no visual defect on confrontation and pupils round, equal, reactive to light CN 3, 4, 6 - extra-ocular movements intact and no nystagmus CN 5 - facial sensation intact CN 7 - no facial asymmetry CN 8 - intact hearing CN 9, 10 - palate symmetric, normal gag CN 11 - good shoulder shrug CN 12 - tongue midline MOTOR: Strength was at least antigravity throughout, Pronator drift was absent and There were no abnormal movements SENSATION: intact and symmetric to pinprick, light touch, vibration and joint position GAIT: stable, no ataxia and can perform tandem walking COORDINATION: no ataxia with finger to nose testing and heel to whitney testing REFLEXES: cannot assess over telemedicine Results & Data Vital Signs (Past 12 Hours) Vital Signs Temp Pulse Pulse Resp BP Pulse Ox O2 Del Method 08/29/23 15:05 36.6 C 76 18 124/89 97 Room Air 08/29/23 14:33 81 08/29/23 11:55 36.5 C 65 18 129/67 97 Room Air 08/29/23 08:22 36.4 C L 71 18 125/74 97 Room Air 08/29/23 07:30 69 Laboratory Results Laboratory Results - last 24 hr 08/29/23 06:54 WBC 6.72 RBC 4.45 L Hgb 15.1 Hct 42.7 MCV 96.0 MCH 33.9 MCHC 35.4 RDW Std Deviation 46.8 H RDW Coeff of Sasha 13.2 Plt Count 288 MPV 9.0 L Immature Gran % (Auto) 0.3 Neut % (Auto) 49.3 Lymph % (Auto) 33.2 Knox % (Auto) 11.6 Eos % (Auto) 4.6 Baso % (Auto) 1.0 Neut # (Auto) 3.31 Lymph # (Auto) 2.23 [place] # (Auto) 0.78 H Eos # (Auto) 0.31 Baso # (Auto) 0.07 Immature Gran # (Auto) 0.02 Sodium 138 Potassium 4.0 Chloride 108 H Carbon Dioxide 26 Anion Gap 4 BUN 16 Creatinine 1.12 Est Cr Clr Drug Dosing 82.7 Est GFR ( Amer) 84.7 Est GFR (Non-Af Amer) 73.0 BUN/Creatinine Ratio 14.3 Glucose 92 Estimat Average Glucose 114 Hemoglobin A1c 5.6 Calcium 8.9 Vitamin B12 401 Folate 13.71 Diagnostic Findings Brain MRI 08/28/23 14:58 Brain MRI WITH AND WITHOUT CONTRAST HISTORY: Left-sided facial and tongue numbness. stroke w/u TECHNIQUE: Multiplanar multisequence MRI of the brain was performed both before and after the intravenous administration of contrast. COMPARISON STUDY: Head CT 08/28/2023. FINDINGS: There are no areas of restricted diffusion to suggest acute infarction. The midline structures are intact. The paranasal sinuses are clear. The mastoid air cells are clear. The ventricles and sulci are within normal limits for age. There is no mass, hematoma, midline shift. The major vascular flow-voids at the skull base are well maintained. Postcontrast sequences show no areas of abnormal enhancement. IMPRESSION: No acute intracranial abnormality. ACT 112: Negative or not required by law. Electronically signed by: Adonis Frederick M.D. 08/28/2023 7:27 PM Venous Doppler Study 08/29/23 11:59 LEFT LOWER EXTREMITY VENOUS DOPPLER CLINICAL HISTORY: Left lower extremity pain. Evaluate for deep venous thrombus. COMPARISON STUDY: No previous studies for comparison. TECHNIQUE: Sonography of the deep venous system of the left lower extremity was performed. Compression and augmentation were evaluated. FINDINGS: The left common femoral, superficial femoral and popliteal veins were compressible. Augmentation was normal. Flow was shown within the deep calf vessels. IMPRESSION: No evidence of deep venous thrombus within the left lower extremity. ACT 112: Negative or not required by law. Electronically signed by: Jah Magana M.D. 08/29/2023 2:11 PM Medications Administered General Constitutional: Appearance normally developed Head and face: normocephalic and atraumatic Eyes: no ptosis, no anisocoria, and no dysconjugate gaze Respiratory: normal effort Cardiovascular: regular rhythm and regular rate Abdomen: non distended Skin: no rashes, lesions, or ulcers noted Psychiatric: normal judgement and insight, normal mood, and normal affect NEUROLOGIC EXAMINATION: Mental Status:alert, oriented to time, place, person, normal recent memory, normal remote memory, normal attention span, normal concentration, normal language and normal fund of knowledge Cranial Nerves: CN 2 - no visual defect on confrontation and pupils round, equal, reactive to light CN 3, 4, 6 - extra-ocular movements intact and no nystagmus CN 5 - facial sensation intact CN 7 - no facial asymmetry CN 8 - intact hearing CN 9, 10 - palate symmetric, normal gag CN 11 - good shoulder shrug CN 12 - tongue midline MOTOR: Strength was at least antigravity throughout, Pronator drift was absent and There were no abnormal movements SENSATION: intact and symmetric to pinprick, light touch, vibration and joint position GAIT: stable, no ataxia and can perform tandem walking COORDINATION: no ataxia with finger to nose testing and heel to whitney testing REFLEXES: cannot assess over telemedicine
[2023-08-29] MEDS ORDERED: ZOLPIDEM TARTRATE 5 MG TAB PO PRN (18:30)
[2023-08-29] MEDS: SODIUM CHLORIDE 0.9% 1,000 ML IV SCH (18:39)
[2023-08-30] MEDS: diphenhydrAMINE Capsule 25 MG CAP PO PRN (01:59)
[2023-08-30 07:11] LABS: Basophils # (auto) 0.07 K/uL (0.00-0.20); Eosinophils # (auto) 0.35 K/uL (0.00-0.50); Eosinophils % (auto) 5.2 %; Hematocrit (blood only) 43.8 % (42.0-52.0); Hemoglobin 15.2 g/dl (14.0-18.0); Immature Granulocytes # (auto) 0.01 K/uL (0.01-0.20); Immature Granulocytes % (auto) 0.1 %; Lymphocytes # (auto) 2.55 K/uL (1.20-3.40); Lymphocytes % (auto) 37.8 %; Mean Corpuscular Hemoglobin 33.6 pg (25.0-34.0); Mean Corpuscular Hgb Conc 34.7 g/dL (32.0-36.0); Mean Corpuscular Volume 96.7 fL (80.0-100.0); Mean Platelet Volume 8.8 fL (9.4-12.4); Monocytes # (auto) 0.78 K/uL (0.11-0.59); Monocytes % (auto) 11.6 %; Neutrophils # (auto) 2.99 K/uL (1.40-6.50); Neutrophils % (auto) 44.3 %; Platelet Count 290 K/uL (130-400); RDW Coefficient of Variation 12.9 % (11.5-14.5); RDW Standard Deviation 45.9 fL (36.4-46.3); Red Blood Count 4.53 M/uL (4.70-6.10); White Blood Count 6.75 K/ul (4.8-10.8)
[2023-08-30 07:28] LABS: BUN Creatinine Ratio 16.3 (10-20); Calcium 8.5 mg/dl (8.6-10.3); Creatinine Clr Calc Pharmacy 96.2 ml/min; Est GFR (African American) 99.5 ml/min; Est GFR (Non-African American) 85.8 ml/min; Potassium 4.2 mmol/L (3.5-5.1)
[2023-08-30] MEDS ORDERED: STROKE PATIENT DISCHARGE STA (10:07)
--- NOTE | 2023-08-30 18:56 | Hospitalist Progress Note ---
Date of Service August 30, 2023 delayed entry date of service noted above Assessment & Plan (1) TIA (transient ischemic attack): (2) HLD (hyperlipidemia): (3) Tobacco use disorder: Plan per admitting service notes with addendum: This is a 58 year old M who has a hx of HLD and tobacco abuse who presents to ED 2/2 facial numbness, tongue numbness and metallic taste in mouth that started today. He was at work when all of a sudden he developed L facial numbness, tongue numbness and a metallic taste of his mouth prior to arrival. Sx resolved after several minutes prior to coming to ER. Possible TIA - pt reporting fleeting neuro sx of L facial numbness, L side tongue numbness and metallic taste to mouth admit to tele stroke work up Head CT and CTAs unremarkable obtain Brain MRI Echocardiogram continue ASA, start atorvastatin 40mg HS a1c in a.m. fasting lipid panel done as outpatient 08/16/23 total chol 225, HDL 33, LDL 158 PT/OT per protocol obtain lyme screen, b12, folic acid 08/29 Brain MRI:No acute intracranial abnormality. CT angio head:No significant stenosis, occlusion, or aneurysm within the [place]. CT angio neck:No stenosis, aneurysm or dissection within the bilateral common carotid, cervical internal carotid or vertebral arteries. Mild atherosclerotic plaque. Echocardiogram: Normal left ventricular wall thickness Left ventricular motion is normal left ventricular systolic function is normal EF 55 to 60% No significant valvular disease Interatrial septum is intact with no atrial septal defect, PFO or intra-atrial shunt Patient was taking aspirin 81 mg p.o. daily but has been on hold for the past 2 weeks due to a possible procedure Currently, usual aspirin 81 mg p.o. daily continue Lipitor 40 mg p.o. at bedtime added 08/30 discussed with neurology service Dr. Antonio from [facility] over the phone TIA unlikely according to her recommends LP to r/o meningitis/encephalitis discussed with Radiology service: Dr. Christopher's suspicion for meningitis/encephalitis is low will be able to perform LP Friday 09/01 patient not able to wait til Friday messaged Dr. Antonio- ar to have LP Friday continue usual ASA Lipitor 40mg daily added Will also need Zio patch monitoring as outpatient to rule out underlying A-fib Will need neurology follow-up in 2 to 3 weeks Smoking cessation Blood pressure control A1c 5.6, monitor HLD fasting lipid panel done as outpatient 08/16/23 total chol 225, HDL 33, LDL 158 Lipitor 40 mg p.o. daily started Monitor LFTs Tobacco abuse smoking cessation techniques discussed encourage cessation nicotine patch while inpt DVT ppx: SCDS, encourage ambulation FULL CODE PCP: Dr. Radha Martinez: d/.c home PCP in 1 week Neuro in 1-2 weeks plan of care discussed with patient in detail and at length all questions answered he is understanding, agreeable, comfortable with the plan of care Admission and Anticipated Discharge Date Admission Date: August 29, 2023 Subjective ff up for stroke like symptoms, etc seen resting in bed, comfortable sleeping but easily wakened states he feels fine overall no recurrence of neuro symptoms no new neuro symptoms no chest pain, dyspnea, palpitations, dizziness no headaches, fever/chills, neck pain no other new symptoms states he prefers not to wait til Friday for LP would like to be discharged Review of Systems Review of Systems: all noted and negative except for above Physical Exam Physical Exam: General- oriented x 3, not in distress, speaks in sentences with no effort or accessory muscle use Eyes- anicteric Neck- no JVD Lungs- clear breath sounds bilaterally, no rales/wheezes Heart- normal rate, regular rhythm; no murmurs Abdomen- normal bowel sounds, nondistended, soft, nontender Extremities- no pretibial edema, no calf tenderness Neuro- alert, oriented x 3; no gross focal neurologic deficits Skin- warm & dry Results & Data Results & Data Vital Signs (Past 12 Hours) Vital Signs Temp Pulse Pulse Pulse Resp BP BP 08/30/23 11:10 36.4 C L 65 72 20 120/70 143/75 H 08/30/23 07:47 36.4 C L 72 20 143/75 H 08/30/23 07:29 65 Pulse Ox O2 Del Method 08/30/23 11:10 97 08/30/23 07:47 97 Room Air 08/30/23 07:29 all noted and reviewed including below
--- NOTE | 2023-09-04 14:35 | Discharge Summary ---
Discharge Summary Date of Service September 04, 2023 delayed entry date of service 08/30/23 Notes For Next Care Provider Medication Changes From Visit Lipitor 40 mg daily -cholesterol lowering agent Hold your usual aspirin for now. Resume aspirin 2 days after your lumbar puncture. No smoking, alcohol use. Admission HPI Per Admitting Provider This is a 58 year old M who has a hx of HLD and tobacco abuse who presents to ED 2/2 facial numbness, tongue numbness and metallic taste in mouth that started today. He was at work when all of a sudden he developed L facial numbness, tongue numbness and a metallic taste of his mouth. The tongue numbness was only the left half of the tongue. This has happened before, specifically the metallic taste. He further reports off and on blurry vision that has been going on over the past year. He describes the blurry vision as, "looking through water." He denies any diplopia. He states it occurs in both eyes. 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 He does admit to having FAM. He is unsure though if it is related to him getting older as his co worker is in his 20s and he is SOB as well. He complains of a fluttering sensation in his chest off and on during the day. He denies any recent illness, f/c/s, chest pain, cough, hemoptysis, n/v/d, abd pain, change in bowel or urinary habits. He has a hx of tobacco use and has smoked since he was 19 years old. He smokes approx 1 ppd. Over the past 5-6 months he is down to 1 ppd lasting him 1.5 days. He feels it is a function of habit for him and association. He has been trying to change his habits. Admission Exam Per Admitting Provider GENERAL APPEARANCE: AxOx4, generally well-appearing M, no acute distress. HEENT: NC, AT. MMM. EOMI, clear conjunctiva, oropharynx clear. NECK: Supple without lymphadenopathy. No stiffness or restricted ROM. HEART: Normal rate and regular rhythm, normal S1/S1, no m/r/g LUNGS: CTAB, moving air well. No crackles or wheezes are heard. ABDOMEN: Soft, nontender, nondistended with good bowel sounds heard. EXTREMITIES: Without cyanosis, clubbing or edema. NEUROLOGICAL: Grossly nonfocal. Alert and oriented, moving all 4 extremities CN II-XII intact. strength 5/5 sensation intact all extremities . Observed to ambulate with normal gait. Skin: Warm and dry without any rash. Principal Dx & Hospital Course #1 = Principal Diagnosis (1) TIA (transient ischemic attack): (2) HLD (hyperlipidemia): (3) Tobacco use disorder: Plan per admitting service notes with addendum: This is a 58 year old M who has a hx of HLD and tobacco abuse who presents to ED 2/2 facial numbness, tongue numbness and metallic taste in mouth that started today. He was at work when all of a sudden he developed L facial numbness, tongue numbness and a metallic taste of his mouth prior to arrival. Sx resolved after several minutes prior to coming to ER. Stroke like Symptoms TIA? - pt reporting fleeting neuro sx of L facial numbness, L side tongue numbness and metallic taste to mouth 08/29 Brain MRI:No acute intracranial abnormality. CT angio head:No significant stenosis, occlusion, or aneurysm within the [place]. CT angio neck:No stenosis, aneurysm or dissection within the bilateral common carotid, cervical internal carotid or vertebral arteries. Mild atherosclerotic plaque. Echocardiogram: Normal left ventricular wall thickness Left ventricular motion is normal left ventricular systolic function is normal EF 55 to 60% No significant valvular disease Interatrial septum is intact with no atrial septal defect, PFO or intra-atrial shunt Patient was taking aspirin 81 mg p.o. daily but has been on hold for the past 2 weeks due to a possible procedure Currently, usual aspirin 81 mg p.o. daily continue Lipitor 40 mg p.o. at bedtime added 08/30 discussed with neurology service Dr. Antonio from [facility] over the phone TIA unlikely according to her recommends LP to r/o meningitis/encephalitis discussed with Radiology service: Dr. Christopher's suspicion for meningitis/encephalitis is low will be able to perform LP Friday 09/01 patient not able to wait til Friday messaged Dr. Antonio- ar to have LP Friday continue usual ASA Lipitor 40mg daily added Will also need Zio patch monitoring as outpatient to rule out underlying A-fib Will need neurology follow-up in 2 to 3 weeks Smoking cessation Blood pressure control A1c 5.6, monitor 09/01 interventional radiologist could not perform LP without orders from PCP or Neurologist called patient's PCP DR. Garcia, no privileges at [facility], requests Neuro to submit orders for LP called Dr. Antonio, not comfortable submitting orders as she will not be able to ff up results, upon review of case, suspicion for meningitis/encephalitis low as per Dr. Antonio, recommend referral to local Neuro svc for ff up and to see if LP still indicated 09/03 upon review of Epic recods, patient already saw PCP 09/02 messaged RONNY Areli Simon to relay recommendations of Neuroologist Dr. Antonio HLD fasting lipid panel done as outpatient 08/16/23 total chol 225, HDL 33, LDL 158 Lipitor 40 mg p.o. daily started Monitor LFTs Tobacco abuse smoking cessation techniques discussed encourage cessation nicotine patch while inpt plan of care discussed with patient in detail and at length upon discharge all questions answered he is understanding, agreeable, comfortable with the plan of care Discharge Exam General- oriented x 3, not in distress, speaks in sentences with no effort or accessory muscle use Eyes- anicteric Neck- no JVD Lungs- clear breath sounds bilaterally, no rales/wheezes Heart- normal rate, regular rhythm; no murmurs Abdomen- normal bowel sounds, nondistended, soft, nontender Extremities- no pretibial edema, no calf tenderness Neuro- alert, oriented x 3; no gross focal neurologic deficits Skin- warm & dry Updated Medication List Medication Instructions Recorded Confirmed Type aspirin 81 mg tablet,delayed 81 mg PO QAM 05/10/19 08/28/23 History release (Halley Low Dose Aspirin) atorvastatin 40 mg tablet 40 mg PO HS 30 days #30 tabs 08/30/23 Rx Hospital Stay Data Consultations 08/28/23 14:33 ED Decision to Admit Stat 08/29/23 14:35 Consult Neurology Routine Diagnostic Imagining Performed Laboratory Results WBC 6.75 K/ul (4.8-10.8) 08/30/23 06:44 RBC 4.53 M/uL (4.70-6.10) L 08/30/23 06:44 Hgb 15.2 g/dl (14.0-18.0) 08/30/23 06:44 Hct 43.8 % (42.0-52.0) 08/30/23 06:44 MCV 96.7 fL (80.0-100.0) 08/30/23 06:44 MCH 33.6 pg (25.0-34.0) 08/30/23 06:44 MCHC 34.7 g/dL (32.0-36.0) 08/30/23 06:44 RDW Std Deviation 45.9 fL (36.4-46.3) 08/30/23 06:44 RDW Coeff of Sasha 12.9 % (11.5-14.5) 08/30/23 06:44 Plt Count 290 K/uL (130-400) 08/30/23 06:44 MPV 8.8 fL (9.4-12.4) L 08/30/23 06:44 Immature Gran % (Auto) 0.1 % 08/30/23 06:44 Neut % (Auto) 44.3 % 08/30/23 06:44 Lymph % (Auto) 37.8 % 08/30/23 06:44 Person % (Auto) 11.6 % 08/30/23 06:44 Eos % (Auto) 5.2 % 08/30/23 06:44 Baso % (Auto) 1.0 % 08/30/23 06:44 Neut # (Auto) 2.99 K/uL (1.40-6.50) 08/30/23 06:44 Lymph # (Auto) 2.55 K/uL (1.20-3.40) 08/30/23 06:44 Person # (Auto) 0.78 K/uL (0.11-0.59) H 08/30/23 06:44 Eos # (Auto) 0.35 K/uL (0.00-0.50) 08/30/23 06:44 Baso # (Auto) 0.07 K/uL (0.00-0.20) 08/30/23 06:44 Immature Gran # (Auto) 0.01 K/uL (0.01-0.20) 08/30/23 06:44 PT 10.2 Seconds (9.0-12.0) 08/28/23 10:49 INR 0.9 (0.9-1.1) 08/28/23 10:49 APTT 29 Seconds (21-31) 08/28/23 10:49 PTT Ratio 1.0 08/28/23 10:49 Sodium 139 mmol/L (136-145) 08/30/23 06:44 Potassium 4.2 mmol/L (3.5-5.1) 08/30/23 06:44 Chloride 111 mmol/L (98-107) H 08/30/23 06:44 Carbon Dioxide 22 mmol/L (21-32) 08/30/23 06:44 Anion Gap 6 (3-11) 08/30/23 06:44 BUN 16 mg/dl (6-23) 08/30/23 06:44 Creatinine 0.98 mg/dl (0.6-1.4) 08/30/23 06:44 Est Cr Clr Drug Dosing 96.2 ml/min 08/30/23 06:44 Est GFR ( Amer) 99.5 ml/min 08/30/23 06:44 Est GFR (Non-Af Amer) 85.8 ml/min 08/30/23 06:44 BUN/Creatinine Ratio 16.3 (10-20) 08/30/23 06:44 Glucose 98 mg/dl (70-99(Fasting)) 08/30/23 06:44 Estimat Average Glucose 114 mg/dl 08/29/23 06:54 Hemoglobin A1c 5.6 % (4.5-5.6) 08/29/23 06:54 Calcium 8.5 mg/dl (8.6-10.3) L 08/30/23 06:44 Magnesium 2.1 mg/dl (1.7-2.4) 08/28/23 10:49 Total Bilirubin 0.6 mg/dl (0.2-1.0) 08/28/23 10:49 AST 19 U/L (13-39) 08/28/23 10:49 ALT 20 U/L (7-52) 08/28/23 10:49 Alkaline Phosphatase 93 U/L (34-104) 08/28/23 10:49 Troponin I High Sens 4.6 pg/ml (0-20) 08/28/23 10:49 Total Protein 8.0 gm/dl (6.0-8.3) 08/28/23 10:49 Albumin 4.8 gm/dl (3.4-5.0) 08/28/23 10:49 Globulin 3.2 gm/dl (2.5-4.0) 08/28/23 10:49 Albumin/Globulin Ratio 1.5 (0.9-2) 08/28/23 10:49 Vitamin B12 401 pg/ml (180-914) 08/29/23 06:54 Folate 13.71 ng/ml (>5.38) 08/29/23 06:54 CSF Albumin Cancelled 08/30/23 06:44 CSF IgG Cancelled 08/30/23 06:44 CSF IgG Index Cancelled 08/30/23 06:44 CSF IgG Synthesis Rate Cancelled 08/30/23 06:44 CSF Myelin Basic Protein Cancelled 08/30/23 06:44 CSF IgG Oligoclonal Bnd Cancelled 08/30/23 06:44 CSF Lyme IgG (Immblot) Cancelled 08/30/23 06:44 CSF Lyme IgG (Immblot) Cancelled 08/30/23 06:44 CSF Lyme IgG Band Pattern Cancelled 08/30/23 06:44 CSF Lyme IgG Band Pattern Cancelled 08/30/23 06:44 CSF Lyme IgM (Immblot) Cancelled 08/30/23 06:44 CSF Lyme IgM (Immblot) Cancelled 08/30/23 06:44 CSF Lyme IgM Band Pattern Cancelled 08/30/23 06:44 CSF Lyme IgM Band Pattern Cancelled 08/30/23 06:44 IgG Cancelled 08/30/23 06:44 Albumin (ARLENE) Cancelled 08/30/23 06:44 Adenovirus (PCR) Not Detected (NotDetected) 08/28/23 10:59 B. pertussis DNA (PCR) Not Detected (NotDetected) 08/28/23 10:59 B.parapertussis DNA PCR Not Detected (NotDetected) 08/28/23 10:59 Lyme Disease Screen Negative (Negative) 08/28/23 10:49 C. pneumoniae DNA (PCR) Not Detected (NotDetected) 08/28/23 10:59 Coronavirus OC43 (PCR) Not Detected (NotDetected) 08/28/23 10:59 Coronavirus HKU1 (PCR) Not Detected (NotDetected) 08/28/23 10:59 Coronavirus 229E (PCR) Not Detected (NotDetected) 08/28/23 10:59 SARS-CoV-2 (PCR) Not Detected (NotDetected) 08/28/23 10:59 Coronavirus NL63 (PCR) Not Detected (NotDetected) 08/28/23 10:59 Cryptococcus Source Cancelled 08/30/23 06:44 Cryptococcal Ag (Latex) Cancelled 08/30/23 06:44 EBV Source Cancelled 08/30/23 06:44 EBV DNA, Quant Cancelled 08/30/23 06:44 EBV DNA (PCR) Cancelled 08/30/23 06:44 HIV (1&2) Ag & Ab Conf NON-REACTIVE (NON-REACTIVE) 08/30/23 06:44 Human Metapneumovir PCR Not Detected (NotDetected) 08/28/23 10:59 Influenza Type A (PCR) Not Detected (NotDetected) 08/28/23 10:59 Influenza Type B (PCR) Not Detected (NotDetected) 08/28/23 10:59 M. pneumoniae (PCR) Not Detected (NotDetected) 08/28/23 10:59 Parainfluenza 1 (PCR) Not Detected (NotDetected) 08/28/23 10:59 Parainfluenza 2 (PCR) Not Detected (NotDetected) 08/28/23 10:59 Parainfluenza 3 (PCR) Not Detected (NotDetected) 08/28/23 10:59 Parainfluenza 4 (PCR) Not Detected (NotDetected) 08/28/23 10:59 RSV (PCR) Not Detected (NotDetected) 08/28/23 10:59 Entero/Rhino (PCR) Not Detected (NotDetected) 08/28/23 10:59 Impressions Chest X-Ray 08/28/23 10:51 XR chest 1V portable HISTORY: weakness COMPARISON: Chest 01/30/2020. FINDINGS: The lungs are clear. Cardiac silhouette is normal in size. No pleural effusions. No pneumothorax. Calcified left hilar lymph nodes again noted. IMPRESSION: No acute process. ACT 112: Negative or not required by law. Electronically signed by: Adonis Frederick M.D. 08/28/2023 11:[address] 08/28/23 10:51 CT head/brain wo con CLINICAL HISTORY: 58 years-old Male with L facial numbness; weakness. Acute weakness with stroke like symptoms TECHNIQUE: Multiple axial CT images of the head were obtained without contrast. A dose lowering technique was utilized adhering to the principles of ALARA. COMPARISON: CTA head of same day FINDINGS: No acute intracranial hemorrhage, midline shift, intracranial mass, hydrocephalus, territorial ischemia or abnormal extra-axial collection. The calvarium is intact. Mastoid air cells are clear. Partial ethmoidectomy changes. IMPRESSION: No acute intracranial abnormality. ACT 112: Negative or not required by law. The above report was generated using voice recognition software. It may contain grammatical, syntax or spelling errors. Electronically signed by: Jimmy Christopher M.D. 08/28/2023 12:35 PM Head CTA 08/28/23 10:51 HEAD CTA HISTORY: L facial numbness; weakness TECHNIQUE: Multiaxial CT images of the head were performed both before and after the intravenous administration of contrast to evaluate the major cerebral vessels. 3D/MIP images were also obtained. Sagittal and coronal reformats were reviewed. A dose lowering technique was utilized adhering to the principles of ALARA. COMPARISON: None. FINDINGS: There is no mass, hematoma, midline shift, or acute infarct. Visualized intracranial internal carotid arteries, distal vertebral arteries, and basilar artery are widely patent. There is no significant stenosis, occlusion, or aneurysm seen within the bilateral ACAs, MCAs, or line server. The major dural venous sinuses are patent. IMPRESSION: No significant stenosis, occlusion, or aneurysm within the [place]. ACT 112: Negative or not required by law. Electronically signed by: Adonis Frederick M.D. 08/28/2023 12:17 PM Neck CTA 08/28/23 10:51 CT ANGIOGRAPHY OF THE NECK WITH CONTRAST CLINICAL HISTORY: L facial numbness; weakness COMPARISON STUDY: Carotid ultrasound April 12, 2015. Technique: CT angiography of the carotid and vertebral arteries was obtained using [employer] and 3D reconstruction on an independent workstation. NASCET criteria was utilized. Automated exposure control was utilized for the study. A dose lowering technique was utilized adhering to the principles of ALARA. Findings: Mild emphysema is incidentally noted within the visualized lung apices. There is no cervical lymphadenopathy. No cervical spine fractures are present. The bilateral common carotid, cervical internal carotid and vertebral arteries are patent. The left vertebral artery is dominant. There is minimal plaque within the bilateral common carotid and cervical internal carotid arteries without stenosis. No aneurysm or dissection within the neck. IMPRESSION: No stenosis, aneurysm or dissection within the bilateral common carotid, cervical internal carotid or vertebral arteries. Mild atherosclerotic plaque. ACT 112: Negative or not required by law. Electronically signed by: Jah Magana M.D. 08/28/2023 12:26 PM Brain MRI 08/28/23 14:58 Brain MRI WITH AND WITHOUT CONTRAST HISTORY: Left-sided facial and tongue numbness. stroke w/u TECHNIQUE: Multiplanar multisequence MRI of the brain was performed both before and after the intravenous administration of contrast. COMPARISON STUDY: Head CT 08/28/2023. FINDINGS: There are no areas of restricted diffusion to suggest acute infarction. The midline structures are intact. The paranasal sinuses are clear. The mastoid air cells are clear. The ventricles and sulci are within normal limits for age. There is no mass, hematoma, midline shift. The major vascular flow-voids at the skull base are well maintained. Postcontrast sequences show no areas of abnormal enhancement. IMPRESSION: No acute intracranial abnormality. ACT 112: Negative or not required by law. Electronically signed by: Adonis Frederick M.D. 08/28/2023 7:27 PM Venous Doppler Study 08/29/23 11:59 LEFT LOWER EXTREMITY VENOUS DOPPLER CLINICAL HISTORY: Left lower extremity pain. Evaluate for deep venous thrombus. COMPARISON STUDY: No previous studies for comparison. TECHNIQUE: Sonography of the deep venous system of the left lower extremity was performed. Compression and augmentation were evaluated. FINDINGS: The left common femoral, superficial femoral and popliteal veins were compressible. Augmentation was normal. Flow was shown within the deep calf vessels. IMPRESSION: No evidence of deep venous thrombus within the left lower extremity. ACT 112: Negative or not required by law. Electronically signed by: Jah Magana M.D. 08/29/2023 2:11 PM Pending Results Patient Have Any Pending Studies at Discharge: Yes Discharge Instructions Given to Patient (Per Discharging Provider) PLEASE REFER TO YOUR NEW MEDICATION LIST AND FOLLOW INSTRUCTIONS CAREFULLY. YOUR NEW MEDICATION INCLUDE: Lipitor 40 mg daily -cholesterol lowering agent Hold your usual aspirin for now. Resume aspirin 2 days after your lumbar puncture. No smoking, alcohol use. You need to have a lumbar puncture done as an outpatient at [facility] on Friday, September 01, 2023. The radiology department will be calling you on Friday for your appointment schedule. PLEASE CALL YOUR PRIMARY CARE PHYSICIAN OR RETURN TO THE ER IF WITH WORSENING OF SYMPTOMS, INCLUDING Headache, dizziness, fevers or chills, Focal weakness or numbness, etc. FOLLOW UP WITH PRIMARY CARE PHYSICIAN OUTLINED ABOVE. Total Time Total Time Spent Total Time Spent (In Minutes): >30 minutes
[2023-09-04 16:17] LABS: Angiotensin Converting Enzyme 18 U/L (9-67); Histoplasma H Band Ab Negative (Negative); Histoplasma M Band Ab Negative (Negative)
== END 2023-08-30 11:54 | disposition home or self-care (01) | DRG 69 ==
LOC: 2N 10:25 → ED 10:25 → SUATTDRO 14:42 → 2N 16:17